=== PATIENT | female | born 1945 | race Caucasian/White ===

== ENCOUNTER 2023-09-09 19:18 | Emergency (ER) | payer OTHER ==
--- OUTSIDE RECORDS SUMMARY | 2023-09-09 19:25 | XMS REPORT | Continuity of Care Document ---
:1945 Author Organization [facility] t Address [address] [place] [address] [address] [place] [address] Care Team Providers Name Role Phone Gerardo Martinez MD Primary Care Physician Doctor Unassigned, [place] Attending Clinician Unavailable Floresita AMAYA, Alycia Attending Clinician Samson Cleveland MD Attending Clinician Peg Ervin Attending Clinician Unavailable Provider, Unknown Attending Clinician Unavailable Gerardo Martinez MD Attending Clinician Yan_W Attending Clinician Unavailable GERARDO MARTINEZ Attending Clinician Unavailable Leah Salcedo RN Attending Clinician Unavailable ZURDO HERNANDEZ Attending Clinician Unavailable Deborah Cleveland DO Attending Clinician Kailey Albert MD Attending Clinician Zurdo Hernandez MD Attending Clinician Lab, Ang - Db Attending Clinician Unavailable VIKY URIARTE Attending Clinician Unavailable Therapy, Adc Covid Infusion Attending Clinician Unavailable Viky Uriarte MD Attending Clinician Garrett Carr MD Attending Clinician Madhuri Billingsley Attending Clinician MADHURI BERGERON Attending Clinician Unavailable CHERYL RIVAS Attending Clinician Unavailable Erica_YUSUF Attending Clinician Unavailable MD CHERYL RIVAS Attending Clinician Unavailable Valrei_A_AH Attending Clinician Unavailable ISI POPE Attending Clinician Unavailable SAMSON [place] Admitting Clinician Unavailable Hamzah Admitting Clinician Unavailable KAILEY ALBERT Admitting Clinician Unavailable Kailey Albert MD Admitting Clinician Erica_YUSUF Admitting Clinician Unavailable CHERYL RIVAS Admitting Clinician Unavailable MD CHERYL RIVAS Admitting Clinician Unavailable Valeri_A_AH Admitting Clinician Unavailable Payers Payer Name Policy Type Policy Number Effective Date Expiration Date S raghavendra [employer] [place] [id number] 2021 PLUS CLASSIC/VALUE 00:00:00 [place] [place] - [id number] 2021 [place] 00:00:00 (MEDICARE REPLACEMENT/ADVANT AGE - HMO) Problems Condition Condition Condition Status Onset Resolution Last Treating Co mments Source Name Details Category Date Date Treatment Clinician Date Coronary Coronary Disease Active Metho di artery artery 6-13 st disease disease 00:00: Hospita 00 l Atrial Atrial Disease Active Methodi fibrillati fibrillati 9-12 st on with on with 00:00: Hospita rapid rapid 00 l ventricula ventricula r response r response Coronary Coronary Disease Active Unive rs artery artery 3-17 ity of disease disease 00:00: [place] involving involving 00 Medi [place] coronary coronary artery of artery of [place] heart with heart with unstable unstable angina angina pectoris pectoris NSTEMI NSTEMI Disease Active Univers (non-ST (non-ST 3-17 ity of elevated elevated 00:00: [place] myocardial myocardial 00 Me dical infarction infarction Br anch ) ) Morbid Morbid Disease Active Univers obesity obesity 3-17 ity of 00:00: [place] 00 Medical Branch Coronary Coronary Disease Active Unive rs artery artery 3-17 ity of disease disease 00:00: [place] involving involving 00 Medi [place] coronary coronary artery of artery of [place] heart with heart with unstable unstable angina angina pectoris pectoris Other Other Disease Active Univers hyperlipid hyperlipid 3-17 it y of emia emia 00:00: [place] 00 Medical Branch Achilles Achilles Disease Active Metho di tendinosis tendinosis 2-25 st of left of left 00:00: Hospita lower lower 00 l extremity extremity CAD CAD Disease Active Overview: Method i (coronary (coronary 7 Formattin s t artery artery 00:00: g of this Hospita disease) disease) 00 note l might be different from the original. Dr. Canas Hypothyroi Hypothyroi Problem Active V illage dism dism 4-13 Family 00:00: Practic 00 e Hyperchole Hyperchole Problem Active V illage sterolemia sterolemia 4-13 Fa sondra 00:00: Practic 00 e Essential Essential Problem Active Felix zahra hypertensi Hypertensi 4-13 Fa sondra on on 00:00: Practic 00 e Gastroesop Gastroesop Problem Active V illage hageal hageal 4-13 Family reflux Reflux 00:00: Practic disease Disease 00 e Irritable Irritable Problem Active Felix zahra bowel Bowel 4-13 Family syndrome Syndrome 00:00: Practi c 00 e Achilles Achilles Disease Active Overview: Me thodi tendinitis tendinitis 12-[address] of right of right 00:00: g of this Hos jermaine lower lower 00 note l extremity extremity might be different from the original. 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 Added automatic ally from request for surgery [id number] Postcalcan Postcalcan Disease Active Overview : Methodi eal eal 12-[address] bursitis bursitis 00:00: g of this Hos jermaine of right of right 00 note l foot foot might be different from the original. Added automatic ally from request for surgery [id number] Acquired Acquired Disease Active Overview: Me thodi hypothyroi hypothyroi 3-[address] dism dism 00:00: g of this Hospita 00 note l might be different from the original. Patient notes that since increase in dose, she has noted new hair growth and improveme nt in bowel habits, as well as more energyLas t Assessmen t & Plan: Formattin g of this note might be different from the original. Continue current doseReche ck in 2 months Irritable Irritable Disease Active Overview: Methodi bowel bowel 02-[address] syndrome syndrome 00:00: g of this Hos jermaine with with 00 note l diarrhea diarrhea might be different from the original. Gastroent erology presumes this diagnosis ; patient up to date on colon cancer screening with hemeoccul t and GI doesn't think that colonosco py would offer any therapeut ic benefit.P atconcepcion has given up most of her simple carbohydr ates and tried antispasm odic. Does not feel these efforts were helpful.L ast Assessmen t & Plan: Formattin g of this note might be different from the original. Advised to update gastroent erology on treatment failure. Consider hyoscyami ne (Anaspaz) , Viberzi, Lotronex. Would appreciat e GI input on next steps. Liver mass Liver mass Disease Active 2017-11 Overview : Methodi 0-[address] 00:00: g of this Hospita 00 note l might be different from the original. Stable per CT 8 Diverticul Diverticul Disease Active 2017-11 Overview : Methodi osis osis 0-[address] 00:00: g of this Hospita 00 note l might be different from the original. Seen on CT abd/pelvi s 09/03Pati ent is pending Renal cyst Renal cyst Disease Active 2017-11 Overview : Methodi 0-[address] 00:00: g of this Hospita 00 note l might be different from the original. Not previousl y seen and not well visualize d on CT.Last Assessmen t & Plan: Formattin g of this note might be different from the original. Order ultrasoun d Other Other Disease Active 2017-11 Overview: Method i hyperlipid hyperlipid Formattin st emia emia 00:00: g of this Hospita 00 note l might be different from the original. On statin The 10-year ASCVD risk score (Chester DC Jr., et al., 2013) is: 54.1% Values used to calculate the score: Age: 74 years Sex: Female Is Non-Hispa brice : No Diabetic: Yes Tobacco smoker: No Systolic Blood Pressure: 160 mmHg Is BP treated: Yes HDL Cholester ol: 42 mg/dL Total Cholester ol: 145 mg/dLNo myalgia Dizziness Dizziness Disease Active 2017-11 Overview: Methodi 0-[address] 00:00: g of this Hospita 00 note l might be different from the original. Can feel when she lies down, and when she stands up.Has fallen into the craft a few times. --------- --------- --------- --------- --------- --------- ---Contin ues to have dizziness Dr. Canas (cardiolo gy) thinks it's inner ear; states allergies haven't been very controlle d. Grief Grief Disease Active 2016-11 Overview: Method i 0-[address] 00:00: g of this Hospita 00 note l might be different from the original. Patient started lexapro last visit; feels like it's helping and that it has stablized her mood well. --------- --------- --------- --------- ----She has since stopped lexapro. Has positive depressio n screen last visit, that was not addressed due to acute pain.Darcie ent states that if she didn't have the pain, she'd feel fine. But with the pain, she is feeling a little depressed . Last Assessmen t & Plan: Formattin g of this note might be different from the original. NO medicatio ns at this time; further evaluatio n for the pain. Kidney Kidney Disease Active 2016-11 Overview: Method i stones stones 0-[address] 00:00: g of this Hospita 00 note l might be different from the original. Patient is having left abdominal pain that gets pretty sharp at times. Notices mostly later in the evening when she is winding down. No vomiting. Every now and then feels nauseated . Patient has some alternati on between constipat ion and diarrhea. In the past 2 weeks has also noted severe heart burn on protonix. Last colonosco py was and they removed 7 polyps.La Assessmen t & Plan: Formattin g of this note might be different from the original. Encourage d hydration ER visit if pain becomes severeTam sulosin discussed ; patient defers. Allergic Allergic Disease Active Overview: Me thodi rhinitis rhinitis 5-[address] 00:00: g of this Hospita 00 note l might be different from the original. Patient states that she is having a lot of trouble with her allergies . She is taking claratinS he is not taking a nasal spray.Carrie javier is having eye drainage and soreness in the skin over the sinusesLa st Assessmen t & Plan: Formattin g of this note might be different from the original. I will send fluticaso ne to try. Morbid Morbid Disease Active Overview: [facility] H[facility] 00 note l might be different from the original. Breakfast : cup of decaf coffee, creamer (2 tsp) and splenda; sometimes toast--no t very oftenLunc h: leftovers from the night before--s ometimes a sandwich (typicall y smaller than dinner).D inner: ground turkey (tacos, patties with gravy, pizza, chili)/ch icken/fis h/shrimp; green beans/bro ccoli/bru ssel sprouts/c abbage/sp inach, does a lot of rice (no potatoes due to diet)Weak ness is fresh bread--ca n eat a lot.Very seldomly eats desserts- -likes to bake but doesn't really eat themBever ages: pepsi or rc for meals (1 can per meal at most); doesn't really do juice or sweet tea, and doesn't really drink water. No formal exercise at this time.---- --------- --------- --------- --------- --------- --------- --------- --------- --------- -----\\Did very well on victoza; however, is unable to afford.Jamey brand's a1c had been 5.6 and is now 6.5--has never been before. Discussed that she is not eating meals--so me days only has a boost.Las t Assessmen t & Plan: Formattin g of this note might be different from the original. Detailed diet and exercise history performed .Discusse d overall expectati ons as far as weight loss.Disc ussed what "success" in weight loss means and how much of a differenc e in overall health that 5-10% of body weight lost can make.Bogdan ferris discussio n of the weight loss medicatio ns, and their mechanism s of action. Individua l recommend ations made.Will try to get trulicity for her insulin resistanc e. Phentermi ne and belviq contraind icated due to her history. Could try contrave. Discussed that patient needs to cut out sodas and sugar sweetened beverages .Discusse d that tracking is extremely important . Type 2 Type 2 Disease Active Overview: Method i diabetes diabetes 4-[address] mellitus mellitus 00:00: g of this Hos jermaine without without 00 note l complicati complicati might be on, on, different without without from the long-term long-term original. current current Using use of use of victozaFi insulin insulin rst few days she was nauseated , but after that she's been doing well.Has cut out bread completel yHas cut down on soft drinks to every other day. --------- --------- --------- --------- --------- --------- --------- --Patient is no longer able to continue this medicatio n due to economics Was doing extremely well on this medicatio n-------- --------- --------- --------- --------- --------- --------- --------- 11/01/19a 1c 6.5 X 2 so discussed this makes her diabetic. Will begin to screen. No current medicatio ns------- --------- --------- --------- --------- --------- --------- --------- --------- 0Patient is doing well on current medicatio nsLast Assessmen t & Plan: Formattin g of this note might be different from the original. Diabetes mellitus: Hypoglyce ajit: noneAdher ing to meds: diet controlle dEye exam:disc ussed needing to scheduleN europathy : Nephropat hy: Statin:at rovastati nACEI/ARB :benazepr ilPneumon ia vaccine:F gerald vaccine: vaccinate d today Chest pain Chest pain Disease Active Overview : Methodi 1-[address] 00:00: g of this Hospita 00 note l might be different from the original. Patient had ECHO showing lesion on her valve, but Dr. Canas says this is okayDid not want to do another stress test--say s it's unnecessa ry. Essential Essential Disease Active Overview: Methodi hypertensi hypertensi 2- Formattin st on on 00:00: g of this Hospita 00 note l might be different from the original. Blood pressure has been running slightly higher at home, but not as high as today. It's been in the 140/80s at home. Previousl y had bad cough with lisinopri lPrevious ly was on losartan- -tolerate d fine. --------- --------- --------- --------- --------- --------- -------Jamey sunday is taking amlodipin e, hctz and metoprolo l for blood pressure. Have been running 150s-160s . When we increased to 10mg, the blood pressure did not change.-- --------- --------- --------- --------- --------- --------1 01/02/19Be en running 123-134/6 5-79 at homeNo chest pain, shortness of breath, headache, blurry vision, or weakness. --------- --------- --------- --------- --------- --------- --------- ---[id number] 58/50-79P atient is taking metoprolo l, hctz and amlodipin e-------- --------- --------- --------- --------- --------- --------- --------- ---2019Patie nt took at home today and it was 120s-130s /60-70s; with outliers in the 140sNo chest pain, shortness of breath, blurry vision, or weakness. Patient has headaches regularly Last Assessmen t & Plan: Marcus calvin of this note might be different from the original. Continue current medicatio nsFollow up in 6 months Difficulty Difficulty Disease Active U nivers walking walking 7-24 ity of 00:00: [place] 00 Medical Branch S/P TKR S/P TKR Disease Active Univers (total (total 7-24 ity of knee knee 00:00: [place] replacemen replacemen 00 Me dical t) using t) using Branch cement, cement, left left Abdominal Abdominal Disease Active Uni vers pain, pain, 6-10 it[place] of generalize generalize [place] Nausea & Nausea & Disease Active Unive rs vomiting vomiting 6-10 ity of 00:00: [place] 00 Medical Branch Hypertensi Hypertensi Disease Active U nivers on on 04-22 ity of 00:00: [place] 00 Medical Branch GERD GERD Disease Active Univers (gastroeso (gastroeso 04-22 it y of phageal phageal 00:00: [place] reflux reflux 00 Medical disease) disease) Branch Allergies, Adverse Reactions, Alerts Allergy Allergy Status Severity Reaction(s) Onset Inactive Treating Comm ents Source Name Type Date Date Clinician Codeine Propensi Active Rash Methodi ty to 01-09 st adverse 00:00: Hospita reaction 00 l s to drug Sulfa Propensi Active Rash Methodi (Sulfona ty to 01-09 mide adverse 00:00: Hospita Antibiot reaction 00 l ics) s to drug Sulfa Propensi Active Rash Univers (Sulfona ty to 04-21 ity of mide adverse 00:00: [place] Antibiot reaction 00 Medica l ics) s Branch Codeine Propensi Active Rash Univers ty to 04-21 ity of adverse 00:00: [place] reaction 00 Medical s Branch CODEINE DRUG Active Rash Univers INGREDI 04-21 ity of 00:00: [place] 00 Medical Branch SULFA Drug Active Rash Univers (SULFONA Class 04-21 ity of MIDE 00:00: [place] ANTIBIOT 00 Medical ICS) Branch Codeine Allergy Active Moderate Rash [place] to Family substanc Practic e e SULFA Allergy Active Mild to Rash [place] (SULFONA to moderate Family MIDE substanc Practic ANTIBIOT e e ICS) Family History Family Member Diagnosis Comments Start Date Stop Date Source Natural father Heart attack [facility] [place] [place] Natural father Hypertension [facility] [place] [place] Natural father Stroke [facility] Natural brother Heart attack [facility] Natural mother No Known Problems Met [facility] Social History Social Habit Start Date Stop Date Quantity Comments Source Gender identity Universit y [facility] Sexual orientation Univer sity [facility] Alcohol intake 2023-04-26 2023-04-26 Lifetime Christianity 00:00:00 00:00:00 non-drinker Hospital (finding) History of Social 2023-04-26 2023-04-[address] function 00:00:00 00:00:00 Hospital Tobacco use and 2023-04-25 2023-04-25 Smokeless Christianity exposure 00:00:00 00:00:00 tobacco non-user Hospital Exposure to 2023-02-17 2023-02-27 Not sure [facility]-CoV-2 (event) 00:00:00 13:59:00 [facility] Sex Assigned [birth year] Universit y of 00:00:00 00:00:00 [place] [facility] Smoking Status Start Date Stop Date Source Never smoked tobacco Christianity H ospital Medications Ordered Filled Start Stop Current Ordering Indication Dosage Frequency Signature Comments Components Source Medication Medication Date Date Medication? Clinician (SIG) Name Name atorvastati Yes 80mg QD Take 1 Meth aliya n (LIPITOR) 6-14 tablet (80 st 80 MG 11:45: mg total) Hospita tablet 12 by mouth l nightly. levothyroxi 0 Yes 75ug QD Take 1 Meth aliya ne 6-14 tablet (75 st (SYNTHROID) 11:45: mcg total) Hospita 75 mcg 12 by mouth l tablet nightly. pantoprazol 0 Yes 40mg QD Take 1 Meth aliya e 6-14 tablet (40 st (PROTONIX) 11:45: mg total) Ho spita 40 MG EC 12 by mouth l tablet nightly. hydroCHLORO 2022-0 Yes 25mg QD Take 1 Meth aliya thiazide 6-14 tablet (25 st (HYDRODIURI 11:45: mg total) H ospita L) 25 MG 12 by mouth l tablet nightly. benazepriL 0 Yes 10mg QD Take 1 Metho di (LOTENSIN) 6-14 tablet (10 st 10 MG 11:45: mg total) Hospita tablet 12 by mouth l nightly. metoprolol 2022-0 Yes 50mg QD Take 1 Metho di tartrate 6-14 tablet (50 st (LOPRESSOR) 11:45: mg total) H ospita 50 mg 12 by mouth l tablet nightly. aspirin 2022-0 2022- No 81mg QD Take 1 Methodi (ECOTRIN) 13 -13 tablet (81 st 81 MG 11:28: 00:00 mg total) Hospit a enteric 56 :00 by mouth l coated nightly. tablet betamethaso 0 2022- No [id number] 6mg Univers ne acet,sod 4-17 -17 ity of phos 21:15: 20:35 [place] (CELESTONE 00 :00 Medical SOLUSPAN) 6 Branch mg/mL injection 6 mg triamcinolo 2022-0 2022- No [id number] 40mg Univers ne -17 -17 ity of acetonide 21:15: 20:34 [place] (KENALOG) 00 :00 Medical injection Branch 40 mg triamcinolo 0 2022- No [id number] 40mg 40 mg, Univers ne 4-17 04-17 Intramuscu ity of acetonide 21:15: 20:34 [place], [place]CE, [place] (KE[place] 00 :00 1 dose, On Medi cameron injection Mon Branch 40 mg 02/27/23 at 1615, Routine betamethaso 2022-2022- No [id number] 6mg 6 mg, Univers ne acet,sod 02-27-17 Intramuscu i ty of phos 21:15: 20:35 lar, ONCE, [place] (CELESTONE 00 :00 1 dose, On Med ical SOLUSPAN) 6 Mon Branch mg/mL 02/27/23 at injection 6 1615, mg Routine betamethaso 2022- No [id number] 6mg Univers ne acet,sod -27 02-17 ity of phos 21:15: 20:35 [place] (CELESTONE 00 :00 Medical SOLUSPAN) 6 Branch mg/mL injection 6 mg triamcinolo 2022- No [id number] 40mg Univers ne 4-17 -17 ity of acetonide 21:15: 20:34 [place] (KENALOG) 00 :00 Medical injection Branch 40 mg triamcinolo 2022-0 2022- No [id number] 40mg 40 mg, Univers ne 4-17 04-17 Intramuscu ity of acetonide 21:15: 20:34 [place]CE, [place] (KE[place]LOG[place] 00 :00 1 dose, On Medi cameron injection Mon Branch 40 mg 02/27/23 at 1615, Routine betamethaso 2022-0 2022- No [id number] 6mg 6 mg, Univers ne acet,sod 4-17 -17 Intramuscu i ty of phos 21:15: 20:35 lar, ONCE, [place] (CELESTONE 00 :00 1 dose, On Med ical SOLUSPAN) 6 Mon Branch mg/mL 02/27/23 at injection 6 1615, mg Routine diltiazem 2022-0 Yes [id number] 180mg Take 1 U nivers 180 mg 24 4-17 capsule by ity of hr capsule 00:00: mouth in [facility] as 00 the Medical morning. Branch montelukast 2022-0 Yes [id number] 10mg Take 1 Univers 10 mg 4-17 tablet by ity of tablet 00:00: mouth in [place] 00 the Medical morning. Branch azithromyci 2022-0 Yes [id number] 500mg Take 1 Univers n 500 mg 4-17 tablet by ity of tablet 00:00: mouth in [place] 00 the Medical morning. Branch diltiazem 2022-0 Yes [id number] 180mg Take 1 U nivers 180 mg 24 4-17 capsule by ity of hr capsule 00:00: mouth in [facility] as 00 the Medical morning. Branch montelukast 2022-0 Yes [id number] 10mg Take 1 Univers 10 mg 4-17 tablet by ity of tablet 00:00: mouth in [place] the Medical morning. Branch azithromyci 2022-0 Yes [id number] 500mg Take 1 Univers n 500 mg 4-17 tablet by ity of tablet 00:00: mouth in [place] the Medical morning. Branch diltiazem 2022-0 Yes [id number] 180mg Take 1 U nivers 180 mg 24 4-17 capsule by ity of hr capsule 00:00: mouth in [facility] as 00 the Medical morning. Branch montelukast 2022-0 Yes [id number] 10mg Take 1 Univers 10 mg 4-17 tablet by ity of tablet 00:00: mouth in [place] 00 the Medical morning. Branch azithromyci 2022-0 Yes [id number] 500mg Take 1 Univers n 500 mg 4-17 tablet by ity of tablet 00:00: mouth in [place] 00 the Medical morning. Branch diltiazem 2022-0 Yes [id number] 180mg Take 1 U nivers 180 mg 24 4-17 capsule by ity of hr capsule 00:00: mouth in [facility] as 00 the Medical morning. Branch montelukast 2022-0 Yes [id number] 10mg Take 1 Univers 10 mg 4-17 tablet by ity of tablet 00:00: mouth in [place] the Medical morning. Branch azithromyci 2022-0 Yes [id number] 500mg Take 1 Univers n 500 mg 4-17 tablet by ity of tablet 00:00: mouth in [place] 00 the Medical morning. Branch diltiazem 2022-0 Yes [id number] 180mg Take 1 U nivers 180 mg 24 4-17 capsule by ity of hr capsule 00:00: mouth in [facility] as 00 the Medical morning. Branch montelukast 2022-0 Yes [id number] 10mg Take 1 Univers 10 mg 4-17 tablet by ity of tablet 00:00: mouth in [place] 00 the Medical morning. Branch azithromyci 2022-0 Yes [id number] 500mg Take 1 Univers n 500 mg 4-17 tablet by ity of tablet 00:00: mouth in [place] the Medical morning. Branch diltiazem 2022-0 Yes [id number] 180mg Take 1 U nivers 180 mg 24 4-17 capsule by ity of hr capsule 00:00: mouth in [facility] 00 the Medical morning. Branch montelukast 2022-0 Yes [id number] 10mg Take 1 Univers 10 mg 4-17 tablet by ity of tablet 00:00: mouth in [place] the Medical morning. Branch azithromyci 2022-0 Yes [id number] 500mg Take 1 Univers n 500 mg 4-17 tablet by ity of tablet 00:00: mouth in [place] 00 the Medical morning. Branch atorvastati 3-0 2023- No 80mg Take 1 Uni vers n 80 mg 2-28 02-28 tablet by ity of tablet 08:01: 00:00 mouth at [place] 13 :00 bedtime. Medical Branch atorvastati 3-0 3- No 80mg Take 1 Uni vers n 80 mg 2-28 02-28 tablet by ity of tablet 08:01: 00:00 mouth at [place] 13 :00 bedtime. Medical Branch azithromyci 2022-0 Yes [id number] 500mg Take 1 Univers n 500 mg 2-28 tablet by ity of tablet 00:00: mouth in [place] 00 the Medical morning. Branch azithromyci 0 Yes [id number] 500mg Take 1 Univers n 500 mg 2-28 tablet by ity of tablet 00:00: mouth in [place] 00 the Medical morning. Branch azithromyci 0 3- No [id number] 500mg Take 1 Univers n 500 mg 2-28 04-17 tablet by ity o f tablet 00:00: 00:00 mouth in [place] 00 :00 the Medical morning. Branch azithromyci 0 2022- No [id number] 500mg Take 1 Univers n 500 mg 2-28 04-17 tablet by ity o f tablet 00:00: 00:00 mouth in [place] 00 :00 the Medical morning. Branch BENAZEPRIL 0 Yes TAKE 1 Unive rs 10 mg 1-04 TABLET ity of tablet 00:00: DAILY [facility] BENAZEPRIL 2022-0 Yes TAKE 1 Unive rs 10 mg 1-04 TABLET ity of tablet 00:00: DAILY [facility] BENAZEPRIL 2022-0 Yes TAKE 1 Unive rs 10 mg 1-04 TABLET ity of tablet 00:00: DAILY [facility] BENAZEPRIL 2022-0 Yes TAKE 1 Unive rs 10 mg 1-04 TABLET ity of tablet 00:00: DAILY [facility] BENAZEPRIL 2022-0 Yes TAKE 1 Unive rs 10 mg 1-04 TABLET ity of tablet 00:00: DAILY [facility] BENAZEPRIL 2022-0 Yes TAKE 1 Unive rs 10 mg 1-04 TABLET ity of tablet 00:00: DAILY [facility] BENAZEPRIL 2022-0 Yes TAKE 1 Unive rs 10 mg 1-04 TABLET ity of tablet 00:00: DAILY Medical Branch BENAZEPRIL 2022-0 Yes TAKE 1 Unive rs 10 mg 1-04 TABLET ity of tablet 00:00: DAILY [facility] BENAZEPRIL 2022-0 Yes TAKE 1 Unive rs 10 mg 1-04 TABLET ity of tablet 00:00: DAILY [place] [facility] BENAZEPRIL 2022-0 Yes TAKE 1 Unive rs 10 mg 1-04 TABLET ity of tablet 00:00: DAILY [place] [facility] amLODIPine 2021-1 2021- No 5mg Take 5 mg U nivers 5 mg tablet 11-15 by mouth ity of 09:43: 00:00 daily. [place] 23 :00 [facility] amLODIPine 2021-11- No 5mg Take 5 mg U nivers 5 mg tablet 11-15 by mouth ity of 09:43: 00:00 daily. [place] 23 :00 [facility] atorvastati 2021-0 Yes 80mg QD Take 1 Meth aliya n (LIPITOR) 9-15 tablet (80 st 80 MG 11:48: mg total) [facility] tablet 00 by mouth l nightly. levothyroxi 2021-0 Yes 75ug QD Take 1 Meth aliya ne 9-15 tablet (75 st (SYNTHROID) 11:48: mcg total) Hospita 75 mcg 00 by mouth l tablet nightly. pantoprazol 0 Yes 40mg QD Take 1 Meth aliya e 9-15 tablet (40 st (PROTONIX) 11:48: mg total) Ho [facility]ita 40 MG EC 00 by mouth l tablet nightly. aspirin 2021-0 Yes 81mg QD Take 1 [facility] (ECOTRIN) 9-15 tablet (81 st 81 MG 11:48: mg total) [facility]ospita enteric 00 by mouth l coated nightly. tablet hydroCHLORO 2021-0 Yes 25mg QD Take 1 [facility] aliya thiazide 9-15 tablet (25 st (HYDRODIURI 11:48: mg total) H ospita L) 25 MG 00 by mouth l tablet nightly. benazepriL 2021-0 Yes 10mg QD Take 1 [facility] di (LOTENSIN) 9-15 tablet (10 st 10 MG 11:48: mg total) Hospita tablet 00 by mouth l nightly. metoprolol 2021-0 Yes 50mg QD Take 1 [facility] di tartrate 9-15 tablet (50 st (LOPRESSOR) 11:48: mg total) [facility] 50 mg 00 by mouth l tablet nightly. atorvastati 2021-0 Yes 80mg QD Take 1 Meth aliya n (LIPITOR) 9-15 tablet (80 st 80 MG 11:48: mg total) [facility]ospita tablet 00 by mouth l nightly. levothyroxi 2021-0 Yes 75ug QD Take 1 Meth aliya ne 9-15 tablet (75 st (SYNTHROID) 11:48: mcg total) [facility]ospita 75 mcg 00 by mouth l tablet nightly. pantoprazol 2022-0 Yes 40mg QD Take 1 Meth aliya e 9-15 tablet (40 st (PROTONIX) 11:48: mg total) [facility]ita 40 MG EC 00 by mouth l tablet nightly. aspirin 2022-0 Yes 81mg QD Take 1 [facility] (ECOTRIN) 9-15 tablet (81 st 81 MG 11:48: mg total) [facility]ospita enteric 00 by mouth l coated nightly. tablet hydroCHLORO 2022-0 Yes 25mg QD Take 1 Meth aliya thiazide 9-15 tablet (25 st (HYDRODIURI 11:48: mg total) H [facility]spita L) 25 MG 00 by mouth l tablet nightly. benazepriL 2-0 Yes 10mg QD Take 1 [facility] di (LOTENSIN) 9-15 tablet (10 st 10 MG 11:48: mg total) Hospita tablet 00 by mouth l nightly. metoprolol 2-0 Yes 50mg QD Take 1 [facility] di tartrate 9-15 tablet (50 st (LOPRESSOR) 11:48: mg total) [facility]sp[facility] 50 mg 00 by mouth l tablet nightly. amLODIPine 2022-0 2022- No 5mg QD Take 1 Meth aliya (NORVASC) 5 07-28-14 tablet (5 st mg tablet 11:48: 00:00 mg total) [facility]ita 00 :00 by mouth l nightly. amLODIPine 2022-0 2022- No 5mg QD Take 1 [facility] aliya (NORVASC) 5 -28 07-14 tablet (5 st mg tablet 11:48: 00:00 mg total) [facility]ita 00 :00 by mouth l nightly. apixaban 2022-0 Yes 5mg Q.5D Take 1 [facility] (ELIQUIS) 5 9-14 tablet (5 st mg tablet 00:00: mg total) [facility] 00 by mouth 2 l (two) times a day. apixaban 2022-0 Yes 5mg Q.5D Take 1 [facility] (ELIQUIS) 5 9-14 tablet (5 st mg tablet 00:00: mg total) [facility] [place] 00 by mouth 2 l (two) times a day. apixaban 2022-0 Yes 5mg Q.5D Take 1 [facility] (ELIQUIS) 5 9-14 tablet (5 st mg tablet 00:00: mg total) [facility] [place] 00 by mouth 2 l (two) times a day. apixaban 5 2022-0 Yes 5mg Take 5 mg Un adam mg tablet 9-14 by mouth ity of 00:00: in the [place] morning Medical and 5 mg Branch in the evening. apixaban 5 2022-0 Yes 5mg Take 5 mg Un adam mg tablet 9-14 by mouth ity of 00:00: in the [place] morning Medical and 5 mg Branch in the evening. apixaban 5 2022-0 Yes 5mg Take 5 mg Un adam mg tablet 9-14 by mouth ity of 00:00: in the [place] morning Medical and 5 mg Branch in the evening. apixaban 5 2022-0 Yes 5mg Take 5 mg Un adam mg tablet 9-14 by mouth ity of 00:00: in the [place] morning Medical and 5 mg Branch in the evening. apixaban 5 2-0 Yes 5mg Take 5 mg Un adam mg tablet 9-14 by mouth ity of 00:00: in the [place] morning Medical and 5 mg Branch in the evening. apixaban 5 2-0 Yes 5mg Take 5 mg Un adam mg tablet 9-14 by mouth ity of 00:00: in the [place] morning Medical and 5 mg Branch in the evening. diltiazem 2022-0 Yes 180mg Take 180 Uni vers 180 mg 24 9-14 mg in the ity o f hr capsule 00:00: morning. [place] 00 Medical Branch apixaban 5 2022-0 Yes 5mg Take 5 mg Un adam mg tablet 9-14 by mouth ity of 00:00: in the [place] morning Medical and 5 mg Branch in the evening. diltiazem 2022-0 Yes 180mg Take 180 Uni vers 180 mg 24 9-14 mg in the ity o f hr capsule 00:00: morning. [place] 00 Medical Branch apixaban 5 2022-0 Yes 5mg Take 5 mg Un adam mg tablet 9-14 by mouth ity of 00:00: in the [place] morning Medical and 5 mg Branch in the evening. diltiazem 2022-0 Yes 180mg Take 180 Uni vers 180 mg 24 9-14 mg in the ity o f hr capsule 00:00: morning. [place] 00 Medical Branch apixaban 5 2021-0 Yes 5mg Take 5 mg Un adam mg tablet 9-14 by mouth ity of 00:00: in the [place] morning Medical and 5 mg Branch in the evening. diltiazem 2022-0 Yes 180mg Take 180 Uni vers 180 mg 24 9-14 mg in the ity o f hr capsule 00:00: morning. [place] 00 Medical Branch apixaban 5 2021-0 Yes 5mg Take 5 mg Un adam mg tablet 9-14 by mouth ity of 00:00: in the [place] morning Medical and 5 mg Branch in the evening. diltiazem 2022-0 Yes 180mg Take 180 Uni vers 180 mg 24 9-14 mg in the ity o f hr capsule 00:00: morning. [place] 00 Medical Branch apixaban 5 2021-0 Yes 5mg Take 5 mg Un adam mg tablet 9-14 by mouth ity of 00:00: in the [place] morning Medical and 5 mg Branch in the evening. diltiazem 2-0 Yes 180mg Take 180 Uni vers 180 mg 24 9-14 mg in the ity o f hr capsule 00:00: morning. [place] 00 Medical Branch apixaban 5 2021-0 Yes 5mg Take 5 mg Un adam mg tablet 9-14 by mouth ity of 00:00: in the [place] morning Medical and 5 mg Branch in the evening. diltiazem 2022-0 2023- No 180mg Take 180 Un adam 180 mg 24 9-14 04-17 mg in the ity of hr capsule 00:00: 00:00 morning. [place] 00 :00 Medical Branch diltiazem 2022-0 2023- No 180mg Take 180 Un adam 180 mg 24 9-14 04-17 mg in the ity of hr capsule 00:00: 00:00 morning. [place] 00 :00 Medical Branch diltiazem 2022-0 2022- No 180mg QD Take 1 Meth aliya CD 9-14 10-[address] (CardIZEM 00:00: 04:59 (180 mg [facility] CD) 180 MG 00 :00 total) by l 24 hr mouth capsule daily for 30 days. diltiazem 2022-0 2022- No 180mg QD Take 1 Meth aliya CD 9-14 10-[address] (CardIZEM 00:00: 04:59 (180 mg [facility] CD) 180 MG 00 :00 total) by l 24 hr mouth capsule daily for 30 days. BENAZEPRIL Yes TAKE 1 Unive rs 10 mg 7-25 TABLET ity of tablet 00:00: DAILY [place] [address] Medical Branch BENAZEPRIL Yes TAKE 1 Unive rs 10 mg 7-25 TABLET ity of tablet 00:00: DAILY [place] [facility] BENAZEPRIL Yes TAKE 1 Unive rs 10 mg 7-25 TABLET ity of tablet 00:00: DAILY [place] [address] Medical Branch BENAZEPRIL Yes TAKE 1 Unive rs 10 mg 7-25 TABLET ity of tablet 00:00: DAILY [address] BENAZEPRIL Yes TAKE 1 Unive rs 10 mg 7-25 TABLET ity of tablet 00:00: DAILY [address] BENAZEPRIL Yes TAKE 1 Unive rs 10 mg 7-25 TABLET ity of tablet 00:00: DAILY [address] BENAZEPRIL Yes TAKE 1 Unive rs 10 mg 7-25 TABLET ity of tablet 00:00: DAILY [address] BENAZEPRIL 2022- No TAKE 1 Univ ers 10 mg 7-25 01-04 TABLET ity of tablet 00:00: 00:00 DAILY [place] 00 :00 [facility] hydrochloro 0 Yes 25mg Take 25 mg Univers thiazide 5-09 by mouth ity of (ESIDRIX) 13:37: daily. [place] [address] Branch pantoprazol Yes 40mg Take 40 mg Univers e 40 mg EC 5-09 by mouth ity o f tablet 13:37: daily. [address] metoprolol 0 Yes 50mg Take 50 mg U nivers tartrate 50 5-09 by mouth ity of mg tablet 13:37: daily. [address] dicyclomine Yes 20mg Take 20 mg Univers 20 mg 5-09 by mouth 2 ity of tablet 13:37: (two) [place] [address] times Medical daily. Branch hydrochloro 2022-0 Yes 25mg Take 25 mg Univers thiazide 5-09 by mouth ity of (ESIDRIX) 13:37: daily. [place] 25 mg 34 Medical tablet Branch pantoprazol 2-0 Yes 40mg Take 40 mg Univers e 40 mg EC 5-09 by mouth ity o f tablet 13:37: daily. [address] Branch metoprolol 2-0 Yes 50mg Take 50 mg U nivers tartrate 50 5-09 by mouth ity of mg tablet 13:37: daily. [address] Branch dicyclomine 2-0 Yes 20mg Take 20 mg Univers 20 mg 5-09 by mouth 2 ity of tablet 13:37: (two) [place] [address] times Medical daily. Branch hydrochloro 2-0 Yes 25mg Take 25 mg Univers thiazide 5-09 by mouth ity of (ESIDRIX) 13:37: daily. [place] 25 mg Medical tablet Branch pantoprazol 2021-0 Yes 40mg Take 40 mg Univers e 40 mg EC 5-09 by mouth ity o f tablet 13:37: daily. [address] metoprolol 2021-0 Yes 50mg Take 50 mg U nivers tartrate 50 5-09 by mouth ity of mg tablet 13:37: daily. [address] dicyclomine 2021-0 Yes 20mg Take 20 mg Univers 20 mg 5-09 by mouth 2 ity of tablet 13:37: (two) [place] [address] times Medical daily. Branch hydrochloro 2-0 Yes 25mg Take 25 mg Univers thiazide 5-09 by mouth ity of (ESIDRIX) 13:37: daily. [place] 25 mg Medical tablet Branch pantoprazol 2-0 Yes 40mg Take 40 mg Univers e 40 mg EC 5-09 by mouth ity o f tablet 13:37: daily. [address] Branch metoprolol 2-0 Yes 50mg Take 50 mg U nivers tartrate 50 5-09 by mouth ity of mg tablet 13:37: daily. [address] Branch dicyclomine 2-0 Yes 20mg Take 20 mg Univers 20 mg 5-09 by mouth 2 ity of tablet 13:37: (two) [place] [address] times Medical daily. Branch hydrochloro 2-0 Yes 25mg Take 25 mg Univers thiazide 5-09 by mouth ity of (ESIDRIX) 13:37: daily. [place] 25 mg Medical tablet Branch pantoprazol 2021-0 Yes 40mg Take 40 mg Univers e 40 mg EC 5-09 by mouth ity o f tablet 13:37: daily. [address] Branch metoprolol 2021-0 Yes 50mg Take 50 mg U nivers tartrate 50 5-09 by mouth ity of mg tablet 13:37: daily. [address] dicyclomine 2021-0 Yes 20mg Take 20 mg Univers 20 mg 5-09 by mouth 2 ity of tablet 13:37: (two) [place] [address] times Medical daily. Branch hydrochloro 2021-0 Yes 25mg Take 25 mg Univers thiazide 5-09 by mouth ity of (ESIDRIX) 13:37: daily. [place] 25 mg Medical tablet Branch pantoprazol 2021-0 Yes 40mg Take 40 mg Univers e 40 mg EC 5-09 by mouth ity o f tablet 13:37: daily. [address] metoprolol 2021-0 Yes 50mg Take 50 mg U nivers tartrate 50 5-09 by mouth ity of mg tablet 13:37: daily. [address] dicyclomine 2021-0 Yes 20mg Take 20 mg Univers 20 mg 5-09 by mouth 2 ity of tablet 13:37: (two) [place] [address] times Medical daily. Branch hydrochloro 2021-0 Yes 25mg Take 25 mg Univers thiazide 5-09 by mouth ity of (ESIDRIX) 13:37: daily. [place] 25 mg Medical tablet Branch pantoprazol 2021-0 Yes 40mg Take 40 mg Univers e 40 mg EC 5-09 by mouth ity o f tablet 13:37: daily. [address] metoprolol 2021-0 Yes 50mg Take 50 mg U nivers tartrate 50 5-09 by mouth ity of mg tablet 13:37: daily. [address] dicyclomine 2021-0 Yes 20mg Take 20 mg Univers 20 mg 5-09 by mouth 2 ity of tablet 13:37: (two) [place] [address] times Medical daily. Branch hydrochloro 2-0 Yes 25mg Take 25 mg Univers thiazide 5-09 by mouth ity of (ESIDRIX) 13:37: daily. [place] 25 mg Medical tablet Branch atorvastati 2022-0 Yes 80mg Take 80 mg Univers n 80 mg 5-09 by mouth ity of tablet 13:37: at [place] [address] bedtime. Medical Branch amLODIPine 2021-0 Yes 5mg Take 5 mg Un adam 5 mg tablet 5-09 by mouth ity of 13:37: daily. [place] [address] Medical Branch pantoprazol 2021-0 Yes 40mg Take 40 mg Univers e 40 mg EC 5-09 by mouth ity o f tablet 13:37: daily. [place] [address] Medical Branch metoprolol 2021-0 Yes 50mg Take 50 mg U nivers tartrate 50 5-09 by mouth ity of mg tablet 13:37: daily. [place] [address] Medical Branch dicyclomine 0 Yes 20mg Take 20 mg Univers 20 mg 5-09 by mouth 2 ity of tablet 13:37: (two) [place] [address] times Medical daily. Branch hydrochloro 2021-0 Yes 25mg Take 25 mg Univers thiazide 5-09 by mouth ity of (ESIDRIX) 13:37: daily. [place] [address] mg Medical tablet Branch atorvastati 0 Yes 80mg Take 80 mg Univers n 80 mg 5-09 by mouth ity of tablet 13:37: at [place] [address] bedtime. Medical Branch amLODIPine 2021-0 Yes 5mg Take 5 mg Un adam 5 mg tablet 5-09 by mouth ity of 13:37: daily. [place] [address] Medical Branch pantoprazol 2021-0 Yes 40mg Take 40 mg Univers e 40 mg EC 5-09 by mouth ity o f tablet 13:37: daily. [place] [address] Medical Branch metoprolol 2021-0 Yes 50mg Take 50 mg U nivers tartrate 50 5-09 by mouth ity of mg tablet 13:37: daily. [place] [address] Medical Branch dicyclomine 2021-0 Yes 20mg Take 20 mg Univers 20 mg 5-09 by mouth 2 ity of tablet 13:37: (two) [place] [address] times Medical daily. Branch hydrochloro 2021-0 Yes 25mg Take 25 mg Univers thiazide 5-09 by mouth ity of (ESIDRIX) 13:37: daily. [place] [address] mg Medical tablet Branch atorvastati 2021-0 Yes 80mg Take 80 mg Univers n 80 mg 5-09 by mouth ity of tablet 13:37: at [place] [address] bedtime. Medical Branch amLODIPine 2022-0 Yes 5mg Take 5 mg Un adam 5 mg tablet 5-09 by mouth ity of 13:37: daily. [place] [address] Medical Branch pantoprazol 0 Yes 40mg Take 40 mg Univers e 40 mg EC 5-09 by mouth ity o f tablet 13:37: daily. [place] [address] Medical Branch metoprolol 0 Yes 50mg Take 50 mg U nivers tartrate 50 5-09 by mouth ity of mg tablet 13:37: daily. [place] [address] Medical Branch dicyclomine 0 Yes 20mg Take 20 mg Univers 20 mg 5-09 by mouth 2 ity of tablet 13:37: (two) [place] [address] times Medical daily. Branch hydrochloro 2021-0 Yes 25mg Take 25 mg Univers thiazide 5-09 by mouth ity of (ESIDRIX) 13:37: daily. [place] [address] Medical tablet Branch atorvastati 0 Yes 80mg Take 80 mg Univers n 80 mg 5-09 by mouth ity of tablet 13:37: at [place] [address] bedtime. Medical Branch amLODIPine 2021-0 Yes 5mg Take 5 mg Un adam 5 mg tablet 5-09 by mouth ity of 13:37: daily. [place] [address] Medical Branch pantoprazol 0 Yes 40mg Take 40 mg Univers e 40 mg EC 5-09 by mouth ity o f tablet 13:37: daily. [place] [address] Medical Branch metoprolol 0 Yes 50mg Take 50 mg U nivers tartrate 50 5-09 by mouth ity of mg tablet 13:37: daily. [place] [address] Medical Branch dicyclomine 0 Yes 20mg Take 20 mg Univers 20 mg 5-09 by mouth 2 ity of tablet 13:37: (two) [place] [address] times Medical daily. Branch hydrochloro 2021-0 Yes 25mg Take 25 mg Univers thiazide 5-09 by mouth ity of (ESIDRIX) 13:37: daily. [place] 25 mg Medical tablet Branch atorvastati 2021-0 Yes 80mg Take 80 mg Univers n 80 mg 5-09 by mouth ity of tablet 13:37: at [place] [address] bedtime. Medical Branch amLODIPine 2021-0 Yes 5mg Take 5 mg Un adam 5 mg tablet 5-09 by mouth ity of 13:37: daily. [place] [address] Medical Branch pantoprazol 2021-0 Yes 40mg Take 40 mg Univers e 40 mg EC 5-09 by mouth ity o f tablet 13:37: daily. [place] [address] Medical Branch metoprolol 2021-0 Yes 50mg Take 50 mg U nivers tartrate 50 5-09 by mouth ity of mg tablet 13:37: daily. [place] [address] Medical Branch dicyclomine 2021-0 Yes 20mg Take 20 mg Univers 20 mg 5-09 by mouth 2 ity of tablet 13:37: (two) [place] [address] times Medical daily. Branch hydrochloro 2-0 Yes 25mg Take 25 mg Univers thiazide 5-09 by mouth ity of (ESIDRIX) 13:37: daily. [place] 25 mg Medical tablet Branch atorvastati 2021-0 Yes 80mg Take 80 mg Univers n 80 mg 5-09 by mouth ity of tablet 13:37: at [place] [address] bedtime. Medical Branch pantoprazol 2021-0 Yes 40mg Take 40 mg Univers e 40 mg EC 5-09 by mouth ity o f tablet 13:37: daily. [place] [address] Medical Branch metoprolol 2021-0 Yes 50mg Take 50 mg U nivers tartrate 50 5-09 by mouth ity of mg tablet 13:37: daily. [place] [address] Medical Branch dicyclomine 2021-0 Yes 20mg Take 20 mg Univers 20 mg 5-09 by mouth 2 ity of tablet 13:37: (two) [place] [address] times Medical daily. Branch hydrochloro 2-0 Yes 25mg Take 25 mg Univers thiazide 5-09 by mouth ity of (ESIDRIX) 13:37: daily. [place] 25 mg Medical tablet Branch atorvastati 2021-0 Yes 80mg Take 80 mg Univers n 80 mg 5-09 by mouth ity of tablet 13:37: at [place] [address] bedtime. Medical Branch pantoprazol 2-0 Yes 40mg Take 40 mg Univers e 40 mg EC 5-09 by mouth ity o f tablet 13:37: daily. [place] [address] Medical Branch metoprolol 2-0 Yes 50mg Take 50 mg U nivers tartrate 50 5-09 by mouth ity of mg tablet 13:37: daily. [place] [address] Medical Branch dicyclomine 2-0 Yes 20mg Take 20 mg Univers 20 mg 5-09 by mouth 2 ity of tablet 13:37: (two) [place] [address] times Medical daily. Branch hydrochloro 2022-0 Yes 25mg Take 25 mg Univers thiazide 5-09 by mouth ity of (ESIDRIX) 13:37: daily. [place] 25 mg 34 Medical tablet Branch atorvastati 2-0 Yes 80mg Take 80 mg Univers n 80 mg 5-09 by mouth ity of tablet 13:37: at [place] [address] bedtime. Medical Branch pantoprazol 2-0 Yes 40mg Take 40 mg Univers e 40 mg EC 5-09 by mouth ity o f tablet 13:37: daily. [place] [address] Medical Branch metoprolol 2021-0 Yes 50mg Take 50 mg U nivers tartrate 50 5-09 by mouth ity of mg tablet 13:37: daily. [place] [address] Medical Branch dicyclomine 2021-0 Yes 20mg Take 20 mg Univers 20 mg 5-09 by mouth 2 ity of tablet 13:37: (two) [place] [address] times Medical daily. Branch hydrochloro 2021-0 Yes 25mg Take 25 mg Univers thiazide 5-09 by mouth ity of (ESIDRIX) 13:37: daily. [place] 25 mg 34 Medical tablet Branch atorvastati 2021-0 Yes 80mg Take 80 mg Univers n 80 mg 5-09 by mouth ity of tablet 13:37: at [place] [address] bedtime. Medical Branch pantoprazol 2021-0 Yes 40mg Take 40 mg Univers e 40 mg EC 5-09 by mouth ity o f tablet 13:37: daily. [place] [address] Medical Branch metoprolol 2-0 Yes 50mg Take 50 mg U nivers tartrate 50 5-09 by mouth ity of mg tablet 13:37: daily. [place] [address] Medical Branch dicyclomine 2021-0 Yes 20mg Take 20 mg Univers 20 mg 5-09 by mouth 2 ity of tablet 13:37: (two) [place] [address] times Medical daily. Branch hydrochloro 2-0 Yes 25mg Take 25 mg Univers thiazide 5-09 by mouth ity of (ESIDRIX) 13:37: daily. [place] 25 mg 34 Medical tablet Branch pantoprazol 2-0 Yes 40mg Take 40 mg Univers e 40 mg EC 5-09 by mouth ity o f tablet 13:37: daily. [place] [address] Medical Branch metoprolol 2-0 Yes 50mg Take 50 mg U nivers tartrate 50 5-09 by mouth ity of mg tablet 13:37: daily. [place] [address] Medical Branch dicyclomine 0 Yes 20mg Take 20 mg Univers 20 mg 5-09 by mouth 2 ity of tablet 13:37: (two) [place] 34 times Medical daily. Branch hydrochloro 0 Yes 25mg Take 25 mg Univers thiazide 5-09 by mouth ity of (ESIDRIX) 13:37: daily. [place] 25 [facility] [place] Branch pantoprazol 0 Yes 40mg Take 40 mg Univers e 40 mg EC 5-09 by mouth ity o f tablet 13:37: daily. [place] [address] Medical Branch metoprolol 0 Yes 50mg Take 50 mg U nivers tartrate 50 5-09 by mouth ity of mg tablet 13:37: daily. [place] [address] Medical Branch dicyclomine Yes 20mg Take 20 mg Univers 20 mg 5-09 by mouth 2 ity of tablet 13:37: (two) [place] [address] times Medical daily. Branch montelukast Yes [id number] 10mg Take 1 Univers 10 mg 5-09 tablet by ity of tablet 00:00: mouth [place] 00 daily. Medical Branch montelukast 0 Yes [id number] 10mg Take 1 Univers 10 mg 5-09 tablet by ity of tablet 00:00: mouth [place] 00 daily. Medical Branch montelukast Yes [id number] 10mg Take 1 Univers 10 mg 5-09 tablet by ity of tablet 00:00: mouth [place] 00 daily. Medical Branch montelukast 0 Yes [id number] 10mg Take 1 Univers 10 mg 5-09 tablet by ity of tablet 00:00: mouth [place] 00 daily. Medical Branch montelukast 0 Yes [id number] 10mg Take 1 Univers 10 mg 5-09 tablet by ity of tablet 00:00: mouth [place] 00 daily. Medical Branch montelukast 0 Yes [id number] 10mg Take 1 Univers 10 mg 5-09 tablet by ity of tablet 00:00: mouth [place] 00 daily. [facility] Branch montelukast 0 Yes [id number] 10mg Take 1 Univers 10 mg 5-09 tablet by ity of tablet 00:00: mouth [place] 00 daily. [facility] Yes [id number] 10mg Take 1 Univers 10 mg 5-09 tablet by ity of tablet 00:00: mouth [place] 00 daily. [facility] 0 Yes [id number] 10mg Take 1 Univers 10 mg 5-09 tablet by ity of tablet 00:00: mouth [place] 00 daily. [facility] 0 Yes [id number] 10mg Take 1 Univers 10 mg 5-09 tablet by ity of tablet 00:00: mouth [place] 00 daily. [facility] 0 Yes [id number] 10mg Take 1 Univers 10 mg 5-09 tablet by ity of tablet 00:00: mouth [place] 00 daily. [facility] 2022- No [id number] 10mg Take 1 Univers 10 mg 5-09 04-17 tablet by ity of tablet 00:00: 00:00 mouth [place] 00 :00 daily. [facility] 2022- No [id number] 10mg Take 1 Univers 10 mg 5-09 04-17 tablet by ity of tablet 00:00: 00:00 mouth [place] 00 :00 daily. Medical Branch nitroglycer [id number] 1 Univers in 0.4 mg 3-19 tablet ity of sublingual 00:00: under the [place] tablet 00 tongue Medical every 5 Branch (five) minutes as needed for Chest pain. nitroglycer 2021-[id number] 1 Univers in 0.4 mg 3-19 tablet ity of sublingual 00:00: under the [place] tablet 00 tongue Medical every 5 Branch (five) minutes as needed for Chest pain. nitroglycer 2021-[id number] 1 Univers in 0.4 mg 3-19 tablet ity of sublingual 00:00: under the [place] tablet 00 tongue Medical every 5 Branch (five) minutes as needed for Chest pain. nitroglycer 2021-[id number] 1 Univers in 0.4 mg 3-19 tablet ity of sublingual 00:00: under the [place] tablet 00 tongue Medical every 5 Branch (five) minutes as needed for Chest pain. nitroglycer 2022-[id number] 1 Univers in 0.4 mg 3-19 tablet ity of sublingual 00:00: under the [place] tablet 00 tongue Medical every 5 Branch (five) minutes as needed for Chest pain. nitroglycer 2-[id number] 1 Univers in 0.4 mg 3-19 tablet ity of sublingual 00:00: under the [place] tablet 00 tongue Medical every 5 Branch (five) minutes as needed for Chest pain. nitroglycer 2021-[id number] 1 Univers in 0.4 mg 3-19 tablet ity of sublingual 00:00: under the [place] tablet 00 tongue Medical every 5 Branch (five) minutes as needed for Chest pain. aspirin 81 2021-0 Yes [id number] 81mg Take 1 U nivers mg chewable 3-19 tablet by ity of tablet 00:00: mouth [place] 00 daily. Medical Branch nitroglycer 2021-[id number] 1 Univers in 0.4 mg 3-19 tablet ity of sublingual 00:00: under the [place] tablet 00 tongue Medical every 5 Branch (five) minutes as needed for Chest pain. aspirin 81 2021-0 Yes [id number] 81mg Take 1 U nivers mg chewable 3-19 tablet by ity of tablet 00:00: mouth [place] 00 daily. Medical Branch nitroglycer 2021-[id number] 1 Univers in 0.4 mg 3-19 tablet ity of sublingual 00:00: under the [place] tablet 00 tongue Medical every 5 Branch (five) minutes as needed for Chest pain. aspirin 81 2021-0 Yes [id number] 81mg Take 1 U nivers mg chewable 3-19 tablet by ity of tablet 00:00: mouth [place] 00 daily. Medical Branch nitroglycer 2-[id number] 1 Univers in 0.4 mg 3-19 tablet ity of sublingual 00:00: under the [place] tablet 00 tongue Medical every 5 Branch (five) minutes as needed for Chest pain. aspirin 81 2-0 Yes [id number] 81mg Take 1 U nivers mg chewable 3-19 tablet by ity of tablet 00:00: mouth [place] 00 daily. [facility] nitroglycer 2-[id number] 1 [facility] in 0.4 mg 3-19 tablet ity of sublingual 00:00: [place] [facility] [place] tablet 00 tongue Medical every 5 Branch (five) minutes as needed for Chest pain. aspirin 81 2021-0 Yes [id number] 81mg Take 1 U nivers mg chewable 3-19 tablet by ity of tablet 00:00: mouth [place] 00 daily. [facility] nitroglycer 2021-[id number] 1 [facility] in 0.4 mg 3-19 tablet ity of sublingual 00:00: [facility] [place] tablet 00 tongue Medical every 5 Branch (five) minutes as needed for Chest pain. aspirin 81 2021-0 Yes [id number] 81mg Take 1 [facility] nivers mg chewable 3-19 tablet by ity of tablet 00:00: mouth [place] 00 daily. [facility] nitroglycer 2021-[id number] 1 [facility] in 0.4 mg 3-19 tablet ity of sublingual 00:00: [place] [facility] [place] tablet 00 tongue Medical every 5 Branch (five) minutes as needed for Chest pain. aspirin 81 2021-0 Yes [id number] 81mg Take 1 U nivers mg chewable 3-19 tablet by ity of tablet 00:00: mouth [place] 00 daily. [facility] nitroglycer 2021-[id number] 1 [facility] in 0.4 mg 3-19 tablet ity of sublingual 00:00: [facility] [place] tablet 00 tongue Medical every 5 Branch (five) minutes as needed for Chest pain. aspirin 81 2021-0 Yes [id number] 81mg Take 1 [facility]ivers mg chewable 3-19 tablet by ity of tablet 00:00: mouth [place] 00 daily. [facility] nitroglycer 2021-[id number] 1 [facility] in 0.4 mg 3-19 tablet ity of sublingual 00:00: under [facility] [place] tablet 00 tongue Medical every 5 Branch (five) minutes as needed for Chest pain. aspirin 81 2021-0 Yes [id number] 81mg Take 1 [facility] mg chewable 3-19 tablet by ity of tablet 00:00: mouth [place] 00 daily. [facility] nitroglycer 2021-[id number] 1 [facility] in 0.4 mg 3-19 tablet ity of sublingual 00:00: under [facility] [place] tablet 00 tongue Medical every 5 Branch (five) minutes as needed for Chest pain. nitroglycer 2021-[id number] 1 [facility] in 0.4 mg 3-19 tablet ity of sublingual 00:00: [facility] [place] tablet 00 tongue Medical every 5 Branch (five) minutes as needed for Chest pain. nitroglycer 2021-[id number] 1 [facility] in 0.4 mg 3-19 tablet ity of sublingual 00:00: [facility] [place] tablet 00 tongue Medical every 5 Branch (five) minutes as needed for Chest pain. aspirin 81 2021-0 3- No [id number] 81mg Take 1 [facility] mg chewable 3-19 -28 tablet by it y of tablet 00:00: 00:00 mouth [place] 00 :00 daily. [facility] aspirin 81 2021-0 3- No [id number] 81mg Take 1 [facility] mg chewable 3-19 -28 tablet by it y of tablet 00:00: 00:00 mouth [place] 00 :00 daily. [facility] levothyroxi 2020-0 Yes [id number] 75ug Take 1 [facility] ne 75 mcg 9-29 tablet by ity o f tablet 00:00: mouth [place] 00 every Medical morning. Branch levothyroxi 2020-0 Yes [id number] 75ug Take 1 [facility] ne 75 mcg 9-29 tablet by ity o f tablet 00:00: mouth [place] 00 every Medical morning. Branch levothyroxi 2020-0 Yes [id number] 75ug Take 1 [facility] ne 75 mcg 9-29 tablet by ity o f tablet 00:00: mouth [place] 00 every Medical morning. Branch levothyroxi 2020-0 Yes [id number] 75ug Take 1 [facility] ne 75 mcg 9-29 tablet by ity o f tablet 00:00: mouth [place] 00 every Medical morning. Branch levothyroxi 2020-0 Yes [id number] 75ug Take 1 [facility] ne 75 mcg 9-29 tablet by ity o f tablet 00:00: mouth [place] 00 every Medical morning. Branch levothyroxi 2020-0 Yes [id number] 75ug Take 1 [facility] ne 75 mcg 9-29 tablet by ity o f tablet 00:00: mouth [place] 00 every Medical morning. Branch levothyroxi 2020-0 Yes [id number] 75ug Take 1 [facility] ne 75 mcg 9-29 tablet by ity o f tablet 00:00: mouth [place] 00 every Medical morning. Branch levothyroxi 2020-0 Yes [id number] 75ug Take 1 [facility] ne 75 mcg 9-29 tablet by ity o f tablet 00:00: mouth [place] 00 every Medical morning. Branch levothyroxi 2020-0 Yes [id number] 75ug Take 1 [facility] ne 75 mcg 9-29 tablet by ity o f tablet 00:00: mouth [place] 00 every Medical morning. Branch levothyroxi 2020-0 Yes [id number] 75ug Take 1 [facility] ne 75 mcg 9-29 tablet by ity o f tablet 00:00: mouth [place] 00 every Medical morning. Branch levothyroxi 2020-0 Yes [id number] 75ug Take 1 [facility] ne 75 mcg 9-29 tablet by ity o f tablet 00:00: mouth [place] 00 every Medical morning. Branch levothyroxi 2020-0 Yes [id number] 75ug Take 1 [facility] ne 75 mcg 9-29 tablet by ity o f tablet 00:00: mouth [place] 00 every Medical morning. Branch levothyroxi 2020-0 Yes [id number] 75ug Take 1 [facility] ne 75 mcg 9-29 tablet by ity o f tablet 00:00: mouth [place] 00 every Medical morning. Branch levothyroxi 2020-0 Yes [id number] 75ug Take 1 [facility] ne 75 mcg 9-29 tablet by ity o f tablet 00:00: mouth [place] 00 every Medical morning. Branch levothyroxi 2020-0 Yes [id number] 75ug Take 1 [facility] ne 75 mcg 9-29 tablet by ity o f tablet 00:00: mouth [place] 00 every Medical morning. Branch levothyroxi 2020-0 Yes [id number] 75ug Take 1 [facility] ne 75 mcg 9-29 tablet by ity o f tablet 00:00: mouth [place] 00 every Medical morning. Branch levothyroxi 2020-0 Yes [id number] 75ug Take 1 [facility] ne 75 mcg 9-29 tablet by ity o f tablet 00:00: mouth [place] 00 every Medical morning. Branch levothyroxi 2020-0 Yes [id number] 75ug Take 1 [facility] ne 75 mcg 9-29 tablet by ity o f tablet 00:00: mouth [place] 00 every Medical morning. Branch ketoconazol 2019-11 Yes [id number] Q.5D Apply M ethodi e (NIZORAL) 0-[address] 2 % cream 00:00: 2 (two) [facility] 00 times a l day. ketoconazol 2019-11 Yes [id number] Q.5D Apply M ethodi e (NIZORAL) 0-[address] 2 % cream 00:00: 2 (two) Hospi ta 00 times a l day. ketoconazol 2019-11- No [id number] Q.5D Apply Methodi e (NIZORAL) 0-29 09-[address] 2 % cream 00:00: 00:00 [facility] ([facility] :[facility] times a l day. ketoconazol 2019-11- No [id number] Q.5D Apply Methodi e (NIZORAL) 0-29 09-[address] 2 % cream 00:00: 00:00 2 (two) [facility] :00 times a l day. benazepriL 2019-11- No [id number] 10mg QD Take 1 [facility] (LOTENSIN) 0-29 10-30 tablet (10 st 10 MG 00:00: 04:59 mg total) Hospit a tablet 00 :00 by mouth l daily. benazepriL 2019-11- No [id number] 10mg QD Take 1 [facility] (LOTENSIN) 0-29 10-30 tablet (10 st 10 MG 00:00: 04:59 mg total) Hospit a tablet 00 :00 by mouth l daily. fluticasone 2020-0 Yes 100ug QD 2 sprays M ethodi propionate 7-31 ([address] (FLONASE) 00:00: total) by Hos [facility] 50 00 Each Nare l mcg/actuati route on nasal daily. spray fluticasone 2020-0 Yes 100ug QD 2 sprays M ethodi propionate 7-31 ([address] (FLONASE) 00:00: total) by Hos [place] 50 00 Each Nare l mcg/actuati route on nasal daily. spray fluticasone 2020-0 2021- No 100ug QD 2 sprays [facility] propionate 7-31 09-12 ([address] (FLONASE) 00:00: 00:00 total) by [facility] 50 00 :00 Each Nare l mcg/actuati route on nasal daily. spray fluticasone 2021- No 100ug QD 2 sprays [facility] propionate 06-12 ([address] (FLONASE) 00:00: 00:00 total) by [facility] 50 00 :00 Each Nare l mcg/actuati route on nasal daily. spray hydroCHLORO 2018-11 Yes [id number] TAKE 1 [facility] thiazide 0-[address] (HYDRODIURI 00:00: MOUTH Hospi ta L) 25 MG 00 DAILY l tablet BEFORE BREAKFAST pantoprazol 2018-11 Yes [id number] TAKE 1 [facility] e 0-[address] (PROTONIX) 00:00: MOUTH Hospit a 40 MG EC 00 DAILY l tablet BEFORE BREAKFAST metoprolol 2018-11 Yes [id number] TAKE 1 M ethodi tartrate 0-[address] (LOPRESSOR) 00:00: MOUTH TWO H [facility]spita 50 mg 00 TIMES l tablet DAILY levothyroxi 2018-11 Yes [id number] TAKE 1 [facility] ne 0-[address] (SYNTHROID) 00:00: MOUTH Hospi ta 25 mcg 00 DAILY l tablet amLODIPine 2018-11 Yes [id number] TAKE 1 M ethodi (NORVASC) 0-[address] 10 mg 00:00: MOUTH [facility]osp[facility] tablet 00 DAILY l atorvastati 2018-11 Yes [id number] TAKE 1 Methodi n (LIPITOR) 0-[address] 80 MG 00:00: MOUTH [facility]osp[facility] tablet 00 NIGHTLY l hydroCHLORO 2018-11 Yes [id number] TAKE 1 [facility] thiazide 0-[address] (HYDRODIURI 00:00: MOUTH Hospi ta L) 25 MG 00 DAILY l tablet BEFORE BREAKFAST pantoprazol 2018-11 Yes [id number] TAKE 1 [facility] e 0-[address] (PROTONIX) 00:00: MOUTH Hospit a 40 MG EC 00 DAILY l tablet BEFORE BREAKFAST metoprolol 2018-11 Yes [id number] TAKE 1 M ethodi tartrate 0-[address] (LOPRESSOR) 00:00: MOUTH TWO [facility]sp[facility] 50 mg 00 TIMES l tablet DAILY levothyroxi 2018-11 Yes [id number] TAKE 1 [facility] ne 0-[address] (SYNTHROID) 00:00: MOUTH Hospi ta 25 mcg 00 DAILY l tablet amLODIPine 2018-11 Yes [id number] TAKE 1 M ethodi (NORVASC) 0-[address] 10 mg 00:00: MOUTH [facility]osp[facility] tablet 00 DAILY l atorvastati 2018-11 Yes [id number] TAKE 1 Methodi n (LIPITOR) 0-[address] 80 MG 00:00: MOUTH [facility]osp[facility] tablet 00 NIGHTLY l hydroCHLORO 2018-11- No [id number] TAKE 1 [facility] thiazide 0-15 09-[address] (HYDRODIURI 00:00: 00:00 [facility]) 25 MG 00 :00 DAILY l tablet BEFORE BREAKFAST pantoprazol 2018-11- No [id number] TAKE 1 Methodi e 0-15 09-[address] (PROTONIX) 00:00: 00:00 MOUTH Hospi ta 40 MG EC 00 :00 DAILY l tablet BEFORE BREAKFAST metoprolol 2018-11- No [id number] TAKE 1 [facility] tartrate 0-15 09-[address] (LOPRESSOR) 00:00: 00:00 MOUTH TWO [facility]osp[facility] 50 mg 00 :00 TIMES l tablet DAILY levothyroxi 2018-11- No [id number] TAKE 1 [facility] ne 0-15 09-[address] (SYNTHROID) 00:00: 00:00 [facility] 25 mcg 00 :00 DAILY l tablet amLODIPine 2018-11- No [id number] TAKE 1 [facility] (NORVASC) 0-15 09-[address] 10 mg 00:00: 00:00 MOUTH [facility]osp[facility] tablet 00 :00 DAILY l atorvastati 2018-11- No [id number] TAKE 1 Methodi n (LIPITOR) 0-15 09-[address] 80 MG 00:00: 00:00 MOUTH [facility]ospita tablet 00 :00 NIGHTLY l hydroCHLORO 2018-11- No [id number] TAKE 1 [facility] thiazide 0-15 09-[address] (HYDRODIURI 00:00: 00:00 [facility] L) 25 MG 00 :00 DAILY l tablet BEFORE BREAKFAST pantoprazol 2018-11- No [id number] TAKE 1 Method[facility] e 0-15 09-[address] (PROTONIX) 00:00: 00:00 MOUTH Hospi ta 40 MG EC 00 :00 DAILY l tablet BEFORE BREAKFAST metoprolol 2018-11- No [id number] TAKE 1 [facility] tartrate 0-15 -[address] (LOPRESSOR) 00:00: 00:00 MOUTH TWO Hospita 50 mg 00 :00 TIMES l tablet DAILY levothyroxi 2018-11- No [id number] TAKE 1 [facility] ne 0-15 -[address] (SYNTHROID) 00:00: 00:00 [facility] 25 mcg 00 :00 DAILY l tablet amLODIPine 2018-11- No [id number] TAKE 1 [facility] (NORVASC) 0-15 -[address] 10 mg 00:00: 00:00 MOUTH [facility]ospita tablet 00 :00 DAILY l atorvastati 2018-11- No [id number] TAKE 1 Methodi n (LIPITOR) 0-15 -[address] 80 MG 00:00: 00:00 MOUTH Hospita tablet 00 :00 NIGHTLY l pantoprazol pantoprazol No 1 Q1D pantoprazo [place] e 40 mg e 40 mg le 40 mg Famil y tablet,arlene tablet,arlene tablet,del Practic yed release yed release ayed e Take 1 Take 1 release tablet tablet Take 1 every day every day tablet by oral by oral every day route. route. by oral route. [facility] No 1 BID [facility] Metoprolol Metoprolol Metoprolol Family Tartrate 50 Tartrate 50 Tartrate Practic mg tablet mg tablet 50 mg e Take 1 Take 1 tablet tablet tablet Take 1 twice a day twice a day tablet by oral by oral twice a route. route. day by oral route. amlodipine amlodipine No 1 Q1D amlodipine [facility] 5 mg tablet 5 mg tablet 5 mg F amily Take 1 Take 1 tablet Practic tablet tablet Take 1 e every day every day tablet by oral by oral every day route. route. by oral route. atorvastati atorvastati No 1 Q1D atorvastat [facility] n 80 mg n 80 mg in 80 mg Famil y tablet Take tablet Take tablet Practic 1 tablet 1 tablet Take 1 e every day every day tablet by oral by oral every day route. route. by oral route. dicyclomine dicyclomine No 1 QID dicyclomin [place] 20 mg 20 mg e 20 mg Family tablet Take tablet Take tablet Practic 1 tablet 4 1 tablet 4 Take 1 e times a day times a day tablet 4 by oral by oral times a route. route. day by oral route. hydrochloro hydrochloro No 1 Q1D hydrochlor [place] thiazide 50 thiazide 50 othiazide Family mg tablet mg tablet 50 mg Prac tic Take 1 Take 1 tablet e tablet tablet Take 1 every day every day tablet by oral by oral every day route. route. by oral route. levothyroxi levothyroxi No 1 Q1D levothyrox [facility] ne 25 mcg ne 25 mcg ine 25 mcg Family tablet Take tablet Take tablet Practic 1 tablet 1 tablet Take 1 e every day every day tablet by oral by oral every day route. route. by oral route. Immunizations Ordered Immunization Filled Date Status Comments Sour ce Name Immunization Name FLUCELVAX QUAD 2022-07-[address] 00:00:00 [facility] FLUCELVAX QUAD 2022-07-[address] 00:00:00 [facility] Influenza High Dose 2022-07-27 Completed Unive rsity of 00:00:00 [facility] Influenza High Dose 2022-07-27 Completed Unive rsity of 00:00:00 [facility] Influenza High Dose 2022-07-27 Completed Unive rsity of 00:00:00 [facility] Influenza High Dose 2022-07-27 Completed Unive rsity of 00:00:00 [facility] Influenza High Dose 2022-07-27 Completed Unive rsity of 00:00:00 [facility] Influenza High Dose 2022-07-27 Completed Unive rsity of 00:00:00 [facility] Influenza High Dose 2022-07-27 Completed Unive rsity of 00:00:00 [facility] Influenza High Dose 2022-07-27 Completed Unive rsity of 00:00:00 [facility] Influenza High Dose 2022-07-27 Completed Unive rsity of 00:00:00 [facility] Influenza High Dose 2022-07-27 Completed Unive rsity of 00:00:00 [facility] Influenza High Dose 2022-07-27 Completed Unive rsity of 00:00:00 [facility] Influenza High Dose 2022-07-27 Completed Unive rsity of 00:00:00 [facility] SARS-COV-2 COVID-19 2021 Completed Unive rsity of MODERNA 0.25ML 00:00:00 [place] [facility] BOOSTER VACCINE Branch SARS-COV-2 COVID-19 2021 Completed Unive rsity of MODERNA 0.25ML 00:00:00 [place] [facility] BOOSTER VACCINE Branch SARS-COV-2 COVID-19 2021 Completed Unive rsity of MODERNA 0.25ML 00:00:00 [place] [facility] BOOSTER VACCINE Branch SARS-COV-2 COVID-19 2021 Completed Unive rsity of MODERNA 0.25ML 00:00:00 [place] [facility] BOOSTER VACCINE Branch SARS-COV-2 COVID-19 2021 Completed Unive rsity of MODERNA 0.25ML 00:00:00 [place] [facility] BOOSTER VACCINE Branch SARS-COV-2 COVID-19 2021 Completed Unive rsity of MODERNA 0.25ML 00:00:00 [place] [facility] BOOSTER VACCINE Branch SARS-COV-2 COVID-19 2021 Completed Unive rsity of MODERNA 0.25ML 00:00:00 [place] [facility] BOOSTER VACCINE Branch SARS-COV-2 COVID-19 2021 Completed Unive rsity of MODERNA 0.25ML 00:00:00 [place] [facility] BOOSTER VACCINE Branch SARS-COV-2 COVID-19 2021 Completed Unive rsity of MODERNA 0.25ML 00:00:00 [place] [facility] BOOSTER VACCINE Branch SARS-COV-2 COVID-19 2021 Completed Unive rsity of MODERNA 0.25ML 00:00:00 [place] [facility] BOOSTER VACCINE Branch SARS-COV-2 COVID-19 2021 Completed Unive rsity of MODERNA 0.25ML 00:00:00 [place] [facility] BOOSTER VACCINE Branch SARS-COV-2 COVID-19 2021 Completed Unive rsity of MODERNA 0.25ML 00:00:00 [place] [facility] BOOSTER VACCINE Branch SARS-COV-2 COVID-19 2021 Completed Unive rsity of MODERNA 0.25ML 00:00:00 [place] [facility] BOOSTER VACCINE Branch SARS-COV-2 COVID-19 2021 Completed Unive rsity of MODERNA 0.25ML 00:00:00 [place] [facility] BOOSTER VACCINE Branch SARS-COV-2 COVID-19 2021 Completed Unive rsity of MODERNA 0.25ML 00:00:00 [place] [facility] BOOSTER VACCINE Branch SARS-COV-2 COVID-19 2021 Completed Unive rsity of MODERNA 0.25ML 00:00:00 [place] [facility] BOOSTER VACCINE Branch SARS-COV-2 COVID-19 2021 Completed Unive rsity of MODERNA 0.25ML 00:00:00 [place] [facility] BOOSTER VACCINE Branch SARS-COV-2 COVID-19 2021-02-10 Completed Unive rsity of MODERNA 12+ YRS 00:00:00 [place] [facility] ical VACCINE Branch SARS-COV-2 COVID-19 2021-02-10 Completed Unive rsity of MODERNA 12+ YRS 00:00:00 [place] [facility] ical VACCINE Branch MODERNA COVID-19 2021-02-10 Completed Methodis t MRNA VACCINATION 00:00:00 Hospital MODERNA COVID-19 2021-02-10 Completed Methodis t MRNA VACCINATION 00:00:00 Hospital MODERNA COVID-19 2021-02-10 Completed Methodis t MRNA VACCINATION 00:00:00 Hospital MODERNA COVID-19 2021-02-10 Completed Methodis t MRNA VACCINATION 00:00:00 Hospital SARS-COV-2 COVID-19 2021-02-10 Completed Unive rsity of MODERNA 12+ YRS 00:00:00 [place] [facility] ical VACCINE Branch SARS-COV-2 COVID-19 2021-02-10 Completed Unive rsity of MODERNA 12+ YRS 00:00:00 [place] [facility] ical VACCINE Branch SARS-COV-2 COVID-19 2021-02-10 Completed Unive rsity of MODERNA 12+ YRS 00:00:00 [place] [facility] ical VACCINE Branch SARS-COV-2 COVID-19 2021-02-10 Completed Unive rsity of MODERNA 12+ YRS 00:00:00 [place] [facility] ical VACCINE Branch SARS-COV-2 COVID-19 2021-02-10 Completed Unive rsity of MODERNA 12+ YRS 00:00:00 [place] [facility] ical VACCINE Branch SARS-COV-2 COVID-19 2021-02-10 Completed Unive rsity of MODERNA 12+ YRS 00:00:00 [place] [facility] ical VACCINE Branch SARS-COV-2 COVID-19 2021-02-10 Completed Unive rsity of MODERNA 12+ YRS 00:00:00 [place] [facility] ical VACCINE Branch SARS-COV-2 COVID-19 2021-02-10 Completed Unive rsity of MODERNA 12+ YRS 00:00:00 [place] [facility] ical VACCINE Branch SARS-COV-2 COVID-19 2021-02-10 Completed Unive rsity of MODERNA 12+ YRS 00:00:00 [place] [facility] ical VACCINE Branch SARS-COV-2 COVID-19 2021-02-10 Completed Unive rsity of MODERNA 12+ YRS 00:00:00 [place] [facility] ical VACCINE Branch SARS-COV-2 COVID-19 2021-02-10 Completed Unive rsity of MODERNA 12+ YRS 00:00:00 [place] [facility] ical VACCINE Branch SARS-COV-2 COVID-19 2021-02-10 Completed Unive rsity of MODERNA 12+ YRS 00:00:00 [place] [facility] ical VACCINE Branch SARS-COV-2 COVID-19 2021-02-10 Completed Unive rsity of MODERNA 12+ YRS 00:00:00 [place] [facility] ical VACCINE Branch SARS-COV-2 COVID-19 2021-02-10 Completed Unive rsity of MODERNA 12+ YRS 00:00:00 [place] [facility] ical VACCINE Branch SARS-COV-2 COVID-19 2021-02-10 Completed Unive rsity of MODERNA 12+ YRS 00:00:00 [place] [facility] ical VACCINE Branch SARS-COV-2 COVID-19 2021-01-13 Completed Unive rsity of MODERNA 12+ YRS 00:00:00 [place] [facility] ical VACCINE Branch SARS-COV-2 COVID-19 2021-01-13 Completed Unive rsity of MODERNA 12+ YRS 00:00:00 [place] [facility] ical VACCINE Branch SARS-COV-2 COVID-19 2021-01-13 Completed Unive rsity of MODERNA 12+ YRS 00:00:00 [place] [facility] ical VACCINE Branch SARS-COV-2 COVID-19 2021-01-13 Completed Unive rsity of MODERNA 12+ YRS 00:00:00 [place] [facility] ical VACCINE Branch SARS-COV-2 COVID-19 2021-01-13 Completed Unive rsity of MODERNA 12+ YRS 00:00:00 [place] [facility] ical VACCINE Branch SARS-COV-2 COVID-19 2021-01-13 Completed Unive rsity of MODERNA 12+ YRS 00:00:00 [place] [facility] ical VACCINE Branch SARS-COV-2 COVID-19 2021-01-13 Completed Unive rsity of MODERNA 12+ YRS 00:00:00 [place] [facility] ical VACCINE Branch SARS-COV-2 COVID-19 2021-01-13 Completed Unive rsity of MODERNA 12+ YRS 00:00:00 [place] [facility] ical VACCINE Branch SARS-COV-2 COVID-19 2021-01-13 Completed Unive rsity of MODERNA 12+ YRS 00:00:00 [place] [facility] ical VACCINE Branch SARS-COV-2 COVID-19 2021-01-13 Completed Unive rsity of MODERNA 12+ YRS 00:00:00 [place] [facility] ical VACCINE Branch SARS-COV-2 COVID-19 2021-01-13 Completed Unive rsity of MODERNA 12+ YRS 00:00:00 [place] [facility] ical VACCINE Branch SARS-COV-2 COVID-19 2021-01-13 Completed Unive rsity of MODERNA 12+ YRS 00:00:00 [place] [facility] ical VACCINE Branch SARS-COV-2 COVID-19 2021-01-13 Completed Unive rsity of MODERNA 12+ YRS 00:00:00 [place] [facility] ical VACCINE Branch SARS-COV-2 COVID-19 2021-01-13 Completed Unive rsity of MODERNA 12+ YRS 00:00:00 [place] [facility] ical VACCINE Branch SARS-COV-2 COVID-19 2021-01-13 Completed Unive rsity of MODERNA 12+ YRS 00:00:00 [place] [facility] ical VACCINE Branch SARS-COV-2 COVID-19 2021-01-13 Completed Unive rsity of MODERNA 12+ YRS 00:00:00 [place] [facility] ical VACCINE Branch SARS-COV-2 COVID-19 2021-01-13 Completed Unive rsity of MODERNA 12+ YRS 00:00:00 [place] [facility] VACCINE Branch MODERNA COVID-19 2021-01-13 Completed Methodis t MRNA VACCINATION 00:00:00 [facility] COVID-19 2021-01-13 Completed Methodis t MRNA VACCINATION 00:00:00 [facility] COVID-19 2021-01-13 Completed Methodis t MRNA VACCINATION 00:00:00 [facility] COVID-Graeme 2021-01-13 Completed Methodis t MRNA VACCINATION 00:00:00 [facility] Influenza High Dose 2020-09-10 Completed Unive rsity of 00:00:00 [facility] Influenza High Dose 2020-09-10 Completed Unive rsity of 00:00:00 [facility] Influenza High Dose 2020-09-10 Completed Unive rsity of 00:00:00 [facility] Influenza High Dose 2020-09-10 Completed Unive rsity of 00:00:00 [facility] Influenza High Dose 2020-09-10 Completed Unive rsity of 00:00:00 [facility] Influenza High Dose 2020-09-10 Completed Unive rsity of 00:00:00 [facility] Influenza High Dose 2020-09-10 Completed Unive rsity of 00:00:00 [facility] Influenza High Dose 2020-09-10 Completed Unive rsity of 00:00:00 [facility] Influenza High Dose 2020-09-10 Completed Unive rsity of 00:00:00 [facility] Influenza High Dose 2020-09-10 Completed Unive rsity of 00:00:00 [facility] Influenza High Dose 2020-09-10 Completed Unive rsity of 00:00:00 [facility] Influenza High Dose 2020-09-10 Completed Unive rsity of 00:00:00 [facility] Influenza High Dose 2020-09-10 Completed Unive rsity of 00:00:00 [facility] Influenza High Dose 2020-09-10 Completed Unive rsity of 00:00:00 [facility] Influenza High Dose 2020-09-10 Completed Unive rsity of 00:00:00 [facility] Influenza High Dose 2020-09-10 Completed Unive rsity of 00:00:00 [facility] Influenza High Dose 2020-09-10 Completed Unive rsity of 00:00:00 [facility] FLUZONE HIGH-DOSE PF 2020-09-10 Completed Meth odist 00:00:00 [facility] FLUZONE HIGH-DOSE PF 2020-09-10 Completed Meth odist 00:00:00 Hospital FLUZONE HIGH-DOSE PF 2020-09-10 Completed Meth odist 00:00:00 Hospital FLUZONE HIGH-DOSE PF 2020-09-10 Completed Meth odist 00:00:00 Hospital Pneumococcal 2019-09-05 Completed University o f Polysaccharide, 00:00:00 [place] [facility] PPSV23 (PNEUMOVAX) Branch Influenza High Dose 2019-09-05 Completed Unive rsity of 00:00:00 [facility] Pneumococcal 2019-09-05 Completed University o f Polysaccharide, 00:00:00 [place] [facility] PPSV23 (PNEUMOVAX) Branch Influenza High Dose 2019-09-05 Completed Unive rsity of 00:00:00 [facility] Pneumococcal 2019-09-05 Completed University o f Polysaccharide, 00:00:00 [place] [facility] PPSV23 (PNEUMOVAX) Branch Influenza High Dose 2019-09-05 Completed Unive rsity of 00:00:00 [facility] Pneumococcal 2019-09-05 Completed University o f Polysaccharide, 00:00:00 [place] [facility] PPSV23 (PNEUMOVAX) Branch Influenza High Dose 2019-09-05 Completed Unive rsity of 00:00:00 [facility] Pneumococcal 2019-09-05 Completed University o f Polysaccharide, 00:00:00 [place] [facility] PPSV23 (PNEUMOVAX) Branch Influenza High Dose 2019-09-05 Completed Unive rsity of 00:00:00 [facility] Pneumococcal 2019-09-05 Completed University o f Polysaccharide, 00:00:00 [place] [facility] PPSV23 (PNEUMOVAX) Branch Influenza High Dose 2019-09-05 Completed Unive rsity of 00:00:00 [facility] Pneumococcal 2019-09-05 Completed University o f Polysaccharide, 00:00:00 [place] [facility] PPSV23 (PNEUMOVAX) Branch Influenza High Dose 2019-09-05 Completed Unive rsity of 00:00:00 [facility] Pneumococcal 2019-09-05 Completed University o f Polysaccharide, 00:00:00 [place] [facility] PPSV23 (PNEUMOVAX) Branch Influenza High Dose 2019-09-05 Completed Unive rsity of 00:00:00 [facility] Pneumococcal 2019-09-05 Completed University o f Polysaccharide, 00:00:00 [place] [facility] PPSV23 (PNEUMOVAX) Branch Influenza High Dose 2019-09-05 Completed Unive rsity of 00:00:00 [facility] Pneumococcal 2019-09-05 Completed University o f Polysaccharide, 00:00:00 [place] [facility] PPSV23 (PNEUMOVAX) Branch Influenza High Dose 2019-09-05 Completed Unive rsity of 00:00:00 [facility] Pneumococcal 2019-09-05 Completed University o f Polysaccharide, 00:00:00 [place] [facility] PPSV23 (PNEUMOVAX) Branch Influenza High Dose 2019-09-05 Completed Unive rsity of 00:00:00 [facility] Pneumococcal 2019-09-05 Completed University o f Polysaccharide, 00:00:00 [place] [facility] PPSV23 (PNEUMOVAX) Branch Influenza High Dose 2019-09-05 Completed Unive rsity of 00:00:00 [facility] Pneumococcal 2019-09-05 Completed University o f Polysaccharide, 00:00:00 [place] [facility] PPSV23 (PNEUMOVAX) Branch Influenza High Dose 2019-09-05 Completed Unive rsity of 00:00:00 [facility] Pneumococcal 2019-09-05 Completed University o f Polysaccharide, 00:00:00 [place] [facility] PPSV23 (PNEUMOVAX) Branch Influenza High Dose 2019-09-05 Completed Unive rsity of 00:00:00 [facility] Pneumococcal 2019-09-05 Completed University o f Polysaccharide, 00:00:00 [place] [facility] PPSV23 (PNEUMOVAX) Branch Influenza High Dose 2019-09-05 Completed Unive rsity of 00:00:00 [facility] Pneumococcal 2019-09-05 Completed University o f Polysaccharide, 00:00:00 [place] [facility] PPSV23 (PNEUMOVAX) Branch Influenza High Dose 2019-09-05 Completed Unive rsity of 00:00:00 [facility] Pneumococcal 2019-09-05 Completed University o f Polysaccharide, 00:00:00 [place] [facility] PPSV23 (PNEUMOVAX) Branch Influenza High Dose 2019-09-05 Completed Unive rsity of 00:00:00 [facility] Pneumococcal 2019-09-05 Completed [facility] Polysaccharide 00:00:00 Hospital FLUZONE HIGH-DOSE PF 2019-09-05 Completed [facility]ist 00:00:00 Hospital Pneumococcal 2019-09-05 Completed [facility] Polysaccharide 00:00:00 Hospital FLUZONE HIGH-DOSE PF 2019-09-05 Completed [facility] odist 00:00:00 Hospital Pneumococcal 2019-09-05 Completed [facility] Polysaccharide 00:00:00 Hospital FLUZONE HIGH-DOSE PF 2019-09-05 Completed [facility]ist 00:00:00 Hospital Pneumococcal 2019-09-05 Completed [facility] Polysaccharide 00:00:00 Hospital FLUZONE HIGH-DOSE PF 2019-09-05 Completed [facility]ist 00:00:00 Hospital Influenza Virus 2019-08-13 Completed Universit y of Vaccine Quad IM 00:00:00 [place] [facility] Multi-dose 6+ MO Branch Influenza Virus 2019-08-13 Completed Universit y of Vaccine Quad IM 00:00:00 [place] [facility] Multi-dose 6+ MO Branch Influenza Virus 2019-08-13 Completed Universit y of Vaccine Quad IM 00:00:00 [place] [facility] Multi-dose 6+ MO Branch Influenza Virus 2019-08-13 Completed Universit y of Vaccine Quad IM 00:00:00 [place] [facility] Multi-dose 6+ MO Branch Influenza Virus 2019-08-13 Completed Universit y of Vaccine Quad IM 00:00:00 [place] [facility] Multi-dose 6+ MO Branch Influenza Virus 2019-08-13 Completed Universit y of Vaccine Quad IM 00:00:00 [place] [facility] Multi-dose 6+ MO Branch Influenza Virus 2019-08-13 Completed Universit y of Vaccine Quad IM 00:00:00 [place] [facility] Multi-dose 6+ MO Branch Influenza Virus 2019-08-13 Completed Universit y of Vaccine Quad IM 00:00:00 [place] [facility] Multi-dose 6+ MO Branch Influenza Virus 2019-08-13 Completed Universit y of Vaccine Quad IM 00:00:00 [place] [facility] Multi-dose 6+ MO Branch Influenza Virus 2019-08-13 Completed Universit y of Vaccine Quad IM 00:00:00 [place] [facility] Multi-dose 6+ MO Branch Influenza Virus 2019-08-13 Completed Universit y of Vaccine Quad IM 00:00:00 [place] [facility] Multi-dose 6+ MO Branch Influenza Virus 2019-08-13 Completed Universit y of Vaccine Quad IM 00:00:00 [place] [facility] Multi-dose 6+ MO Branch Influenza Virus 2019-08-13 Completed Universit y of Vaccine Quad IM 00:00:00 [place] [facility] Multi-dose 6+ MO Branch Influenza Virus 2019-08-13 Completed Universit y of Vaccine Quad IM 00:00:00 [place] [facility] Multi-dose 6+ MO Branch Influenza Virus 2019-08-13 Completed Universit y of Vaccine Quad IM 00:00:00 [place] [facility] Multi-dose 6+ MO Branch Influenza Virus 2019-08-13 Completed Universit y of Vaccine Quad IM 00:00:00 [place] [facility] Multi-dose 6+ MO Branch Influenza Virus 2019-08-13 Completed Universit y of Vaccine Quad IM 00:00:00 [place] [facility] Multi-dose 6+ MO Branch influenza, influenza, 2019-08-13 Completed [facility] injectable, injectable, 00:00:00 Practice quadrivalent quadrivalent FLUZONE QUAD 2019-08-13 Completed [facility] 00:00:00 Hospital FLUZONE QUAD 2019-08-13 Completed [facility] 00:00:00 Hospital FLUZONE QUAD 2019-08-13 Completed [facility] 00:00:00 Hospital FLUZONE QUAD 2019-08-13 Completed [facility] 00:00:00 Hospital TDAP 2019-03-29 Completed University of 00:00:00 [facility] TDAP 2019-03-29 Completed University of 00:00:00 [facility] Branch TDAP 2019-03-29 Completed University of 00:00:00 [facility] TDAP 2019-03-29 Completed University of 00:00:00 [facility] TDAP 2019-03-29 Completed University of 00:00:00 [facility] TDAP 2019-03-29 Completed University of 00:00:00 [facility] TDAP 2019-03-29 Completed University of 00:00:00 [facility] TDAP 2019-03-29 Completed University of 00:00:00 [facility] [place] [facility] TDAP 2019-03-29 Completed University of 00:00:00 [place] [facility] TDAP 2019-03-29 Completed University of 00:00:00 [facility] TDAP 2019-03-29 Completed University of 00:00:00 [place] [facility] TDAP 2019-03-29 Completed University of 00:00:00 [place] [facility] TDAP 2019-03-29 Completed University of 00:00:00 [facility] TDAP 2019-03-29 Completed University of 00:00:00 [facility] TDAP 2019-03-29 Completed University of 00:00:00 [facility] Branch TDAP 2019-03-29 Completed University of 00:00:00 [facility] TDAP 2019-03-29 Completed University of 00:00:00 [facility] Tdap 2019-03-29 Completed [facility] 00:00:00 [facility] Tdap 2019-03-29 Completed [facility] 00:00:00 [facility] Tdap 2019-03-29 Completed [facility] 00:00:00 [facility] Zoster(Zostavax)([facility] 2017-02-11 Completed Univ ersity of ngles) 00:00:00 [facility] Zoster Vaccine 2017-02-11 Completed University of Recombinant 00:00:00 [facility] Zoster(Zostavax)([facility] 2017-02-11 Completed Univ ersity of ngles) 00:00:00 [facility] Zoster Vaccine 2017-02-11 Completed University of Recombinant 00:00:00 [facility] Zoster(Zostavax)([facility] 2017-02-11 Completed Univ ersity of ngles) 00:00:00 [facility] Zoster Vaccine 2017-02-11 Completed University of Recombinant 00:00:00 [facility] Zoster(Zostavax)([facility] 2017-02-11 Completed Univ ersity of ngles) 00:00:00 [facility] Zoster Vaccine 2017-02-11 Completed University of Recombinant 00:00:00 [facility] Zoster(Zostavax)([facility] 2017-02-11 Completed Univ ersity of ngles) 00:00:00 [facility] Zoster Vaccine 2017-02-11 Completed University of Recombinant 00:00:00 [facility] Zoster(Zostavax)([facility] 2017-02-11 Completed Univ ersity of ngles) 00:00:00 [facility] Zoster Vaccine 2017-02-11 Completed University of Recombinant 00:00:00 [facility] Zoster(Zostavax)([facility] 2017-02-11 Completed Univ ersity of ngles) 00:00:00 [facility] Zoster Vaccine 2017-02-11 Completed University of Recombinant 00:00:00 [facility] Zoster(Zostavax)([facility] 2017-02-11 Completed Univ ersity of ngles) 00:00:00 [facility] Zoster Vaccine 2017-02-11 Completed University of Recombinant 00:00:00 [facility] Zoster(Zostavax)([facility] 2017-02-11 Completed Univ ersity of ngles) 00:00:00 [facility] Zoster Vaccine 2017-02-11 Completed University of Recombinant 00:00:00 [facility] Zoster(Zostavax)([facility] 2017-02-11 Completed Univ ersity of ngles) 00:00:00 [facility] Zoster Vaccine 2017-02-11 Completed University of Recombinant 00:00:00 [facility] Zoster(Zostavax)([facility] 2017-02-11 Completed Univ ersity of ngles) 00:00:00 [facility] Zoster Vaccine 2017-02-11 Completed University of Recombinant 00:00:00 [facility] Zoster(Zostavax)([facility] 2017-02-11 Completed Univ ersity of ngles) 00:00:00 [facility] Zoster Vaccine 2017-02-11 Completed University of Recombinant 00:00:00 [facility] Zoster(Zostavax)([facility] 2017-02-11 Completed Univ ersity of ngles) 00:00:00 [facility] Zoster Vaccine 2017-02-11 Completed University of Recombinant 00:00:00 [facility] Zoster(Zostavax)([facility] 2017-02-11 Completed Univ ersity of ngles) 00:00:00 [facility] Zoster Vaccine 2017-02-11 Completed University of Recombinant 00:00:00 [facility] Zoster(Zostavax)([facility] 2017-02-11 Completed Univ ersity of ngles) 00:00:00 [facility] Zoster Vaccine 2017-02-11 Completed University of Recombinant 00:00:00 [facility] Zoster(Zostavax)([facility] 2017-02-11 Completed Univ ersity of ngles) 00:00:00 [facility] Zoster Vaccine 2017-02-11 Completed University of Recombinant 00:00:00 [facility] Zoster(Zostavax)([facility] 2017-02-11 Completed Univ ersity of ngles) 00:00:00 [facility] Zoster Vaccine 2017-02-11 Completed University of Recombinant 00:00:00 [facility] Zoster 2017-02-11 Completed [facility] 00:00:00 [facility] Zoster 2017-02-11 Completed [facility] 00[facility]00:00 Hospital Zoster 2017-02-11 Completed [facility] 00:00:00 Hospital Zoster 2017-02-11 Completed [facility] 00:00:00 Hospital Pneumococcal 13 2016-02-19 Completed Universit y of Conjugate, PCV13 00:00:00 [place] [facility] (Prevnar 13) Branch Pneumococcal 13 2016-02-19 Completed Universit y of Conjugate, PCV13 00:00:00 [place] [facility] (Prevnar 13) Branch Pneumococcal 13 2016-02-19 Completed Universit y of Conjugate, PCV13 00:00:00 [place] [facility] (Prevnar 13) Branch Pneumococcal 13 2016-02-19 Completed Universit y of Conjugate, PCV13 00:00:00 [place] [facility] (Prevnar 13) Branch Pneumococcal 13 2016-02-19 Completed Universit y of Conjugate, PCV13 00:00:00 [place] [facility] (Prevnar 13) Branch Pneumococcal 13 2016-02-19 Completed Universit y of Conjugate, PCV13 00:00:00 [place] [facility] (Prevnar 13) Branch Pneumococcal 13 2016-02-19 Completed Universit y of Conjugate, PCV13 00:00:00 [place] [facility] (Prevnar 13) Branch Pneumococcal 13 2016-02-19 Completed Universit y of Conjugate, PCV13 00:00:00 [place] [facility] (Prevnar 13) Branch Pneumococcal 13 2016-02-19 Completed Universit y of Conjugate, PCV13 00:00:00 [place] [facility] (Prevnar 13) Branch Pneumococcal 13 2016-02-19 Completed Universit y of Conjugate, PCV13 00:00:00 [place] [facility] (Prevnar 13) Branch Pneumococcal 13 2016-02-19 Completed Universit y of Conjugate, PCV13 00:00:00 [place] [facility] (Prevnar 13) Branch Pneumococcal 13 2016-02-19 Completed Universit y of Conjugate, PCV13 00:00:00 [place] [facility] (Prevnar 13) Branch Pneumococcal 13 2016-02-19 Completed Universit y of Conjugate, PCV13 00:00:00 [place] [facility] (Prevnar 13) Branch Pneumococcal 13 2016-02-19 Completed Universit y of Conjugate, PCV13 00:00:00 [place] [facility] (Prevnar 13) Branch Pneumococcal 13 2016-02-19 Completed Universit y of Conjugate, PCV13 00:00:00 [place] [facility] (Prevnar 13) Branch Pneumococcal 13 2016-02-19 Completed Universit y of Conjugate, PCV13 00:00:00 [place] [facility] (Prevnar 13) Branch Pneumococcal 13 2016-02-19 Completed Universit y of Conjugate, PCV13 00:00:00 [place] [facility] (Prevnar 13) Branch Pneumococcal 2016-02-19 Completed [facility] Conjugate 13-Valent 00:00:00 [facility] Pneumococcal 2016-02-19 Completed [facility] Conjugate 13-Valent 00:00:00 [facility] Pneumococcal 2016-02-19 Completed [facility] Conjugate 13-Valent 00:00:00 [facility] Pneumococcal 2016-02-19 Completed [facility] Conjugate 13-Valent 00:00:00 [facility] Tetanus/Diptheria 2015-02-27 Completed Univers ity of 00:00:00 [facility] Zoster Vaccine 2015-02-27 Completed University of Recombinant 00:00:00 [facility] Tetanus/Diptheria 2015-02-27 Completed Univers ity of 00:00:00 [facility] Zoster Vaccine 2015-02-27 Completed University of Recombinant 00:00:00 [facility] Tetanus/Diptheria 2015-02-27 Completed Univers ity of 00:00:00 [facility] Zoster Vaccine 2015-02-27 Completed University of Recombinant 00:00:00 [facility] Tetanus/Diptheria 2015-02-27 Completed Univers ity of 00:00:00 [facility] Zoster Vaccine 2015-02-27 Completed University of Recombinant 00:00:00 [facility] Tetanus/Diptheria 2015-02-27 Completed Univers ity of 00:00:00 [facility] Zoster Vaccine 2015-02-27 Completed University of Recombinant 00:00:00 [facility] Tetanus/Diptheria 2015-02-27 Completed Univers ity of 00:00:00 [facility] Zoster Vaccine 2015-02-27 Completed University of Recombinant 00:00:00 [facility] Tetanus/Diptheria 2015-02-27 Completed Univers ity of 00:00:00 [facility] Zoster Vaccine 2015-02-27 Completed University of Recombinant 00:00:00 [facility] Tetanus/Diptheria 2015-02-27 Completed Univers ity of 00:00:00 [facility] Zoster Vaccine 2015-02-27 Completed University of Recombinant 00:00:00 [facility] Tetanus/Diptheria 2015-02-27 Completed Univers ity of 00:00:00 [facility] Zoster Vaccine 2015-02-27 Completed University of Recombinant 00:00:00 [facility] Tetanus/Diptheria 2015-02-27 Completed Univers ity of 00:00:00 [facility] Zoster Vaccine 2015-02-27 Completed University of Recombinant 00:00:00 [facility] Tetanus/Diptheria 2015-02-27 Completed Univers ity of 00:00:00 [facility] Zoster Vaccine 2015-02-27 Completed University of Recombinant 00:00:00 [facility] Tetanus/Diptheria 2015-02-27 Completed Univers ity of 00:00:00 [facility] Zoster Vaccine 2015-02-27 Completed University of Recombinant 00:00:00 [facility] Tetanus/Diptheria 2015-02-27 Completed Univers ity of 00:00:00 [facility] Zoster Vaccine 2015-02-27 Completed University of Recombinant 00:00:00 [facility] Tetanus/Diptheria 2015-02-27 Completed Univers ity of 00:00:00 [facility] Zoster Vaccine 2015-02-27 Completed University of Recombinant 00:00:00 [facility] Tetanus/Diptheria 2015-02-27 Completed Univers ity of 00:00:00 [facility] Zoster Vaccine 2015-02-27 Completed University of Recombinant 00:00:00 [facility] Tetanus/Diptheria 2015-02-27 Completed Univers ity of 00:00:00 [facility] Zoster Vaccine 2015-02-27 Completed University of Recombinant 00:00:00 [facility] Tetanus/Diptheria 2015-02-27 Completed Univers ity of 00:00:00 [facility] Zoster Vaccine 2015-02-27 Completed University of Recombinant 00:00:00 [facility] Td, Unspecified 2015-02-27 Completed [facility] 00:00:00 Hospital Td, Unspecified 2015-02-27 Completed [facility] 00:00:00 Hospital Td, Unspecified 2015-02-27 Completed [facility] 00:00:00 Hospital Td, Unspecified 2015-02-27 Completed [facility] 00:00:00 Hospital SARS-COV-2 COVID-19 Unknown Completed Unive rsity of MODERNA 12+ YRS [place] [facility] VACCINE Branch SARS-COV-2 COVID-19 Unknown Completed Unive rsity of MODERNA 12+ YRS [place] [facility] VACCINE Branch Influenza High Dose Unknown Completed Unive rsity of [facility] Influenza High Dose Unknown Completed Unive rsity of [facility] Influenza Virus Unknown Completed Universit y of Vaccine Quad IM [facility] ical Multi-dose 6+ MO Branch Pneumococcal 13 Unknown Completed Universit y of Conjugate, PCV13 [place] [facility] (Prevnar 13) Branch Pneumococcal Unknown Completed University o f Polysaccharide, [facility] ical PPSV23 (PNEUMOVAX) Branch Tetanus/Diptheria Unknown Completed [facility] TDAP Unknown Completed [facility] Zoster(Zostavax)([facility]cedes Unknown [facility] Zoster Vaccine Unknown Completed [facility] Zoster Vaccine Unknown Completed [facility] SARS-COV-2 COVID-19 Unknown Completed Unive rsity of [facility] 0.25ML [facility] BOOSTER VACCINE Branch Td, Unspecified Unknown Completed [facility] Pneumococcal Unknown Completed [facility] Conjugate 13-Valent [facility] Zoster Unknown Completed [facility] Tdap Unknown Completed [facility] Pneumococcal Unknown Completed [facility] Polysaccharide [facility] FLUZONE HIGH-DOSE PF Unknown Completed [facility] Completed [facility] FLUZONE HIGH-DOSE PF Unknown Completed [facility] COVID-19 Unknown Com[facility] MOD[facility]NA COVID-19 Unknown Com[facility] FLUCELVAX QUAD PF Unknown Completed [facility] Vital Signs Vital Name Observation Time Observation Value Comments Source Systolic blood 2023-02-27 19:23:00 137 mm[Hg] Univer sity of [facility] Diastolic blood 2023-02-27 19:23:00 79 mm[Hg] Unive rsity of [facility] Heart rate 2023-02-27 19:23:00 55 /min [facility] Body temperature 2023-02-27 19:23:00 37.06 Consuelo [facility] Body height 2023-02-27 19:23:00 157.5 cm [facility] Body weight 2023-02-27 19:23:00 101.016 kg [facility] BMI 2023-02-27 19:23:00 40.73 kg/m2 [facility] Oxygen saturation in 2023-02-27 19:23:00 94 /min [facility] Arterial blood by [facility] Pulse oximetry Branch Systolic blood 2023-01-10 13:55:00 163 mm[Hg] Univer sity of [facility] Diastolic blood 2023-01-10 13:55:00 67 mm[Hg] Unive rsity of [facility] Heart rate 2023-01-10 13:55:00 62 /min [facility] [place] [facility] Body temperature 2023-01-10 13:54:00 36.72 Consuelo Univ ersity of [facility] Body height 2023-01-10 13:54:00 157.5 cm [facility] [place] [facility] Body weight 2023-01-10 13:54:00 101.152 kg [facility] [place] [facility] BMI 2023-01-10 13:54:00 40.79 kg/m2 Universi ty of [facility] Systolic blood 2022-09-15 14:43:00 148 mm[Hg] Univer sity of pressure [facility] [place] [facility] Diastolic blood 2022-09-15 14:43:00 69 mm[Hg] Unive rsity of pressure [facility] Heart rate 2022-09-15 14:42:00 59 /min [facility] [place] [facility] Body temperature 2022-09-15 14:42:00 36.89 Consuelo Univ ers[facility] [place] [facility] Body weight 2022-09-15 14:42:00 100.699 kg [facility] [place] [facility] BMI 2022-09-15 14:42:00 40.60 kg/m2 [facility] [place] [facility] Systolic blood 2022-07-25 15:21:00 148 mm[Hg] Univer sity of pressure [facility] [place] [facility] Diastolic blood 2022-07-25 15:21:00 91 mm[Hg] Unive rsity of pressure [facility] [place] [facility] Heart rate 2022-07-25 15:20:00 77 /min [facility] [place] [facility] [place] Height 2020-02-24 00:00:00 63 [in_i] [facility] BMI (Body Mass 2020-02-24 00:00:00 38.3 kg/m2 [facility] Body Weight 2020-02-24 00:00:00 216 [lb_av] [facility] Practice Systolic blood 2023-04-26 13:46:03 134 mm[Hg] [facility] pressure Diastolic blood 2023-04-26 13:46:03 94 mm[Hg] [facility] pressure Heart rate 2023-04-26 13:46:03 58 /min [facility] Body temperature 2023-04-26 13:46:03 36.22 Consuelo [facility] Oxygen saturation in 2023-04-26 13:46:03 98 /min [facility] Arterial blood by Pulse oximetry Respiratory rate 2023-04-26 09:51:54 18 /min [facility] Body weight 2023-04-26 09:51:[address] [facility] [place] [place] BMI 2023-04-26 09:51:54 38.82 kg/m2 [facility] [place] Body height 2023-04-25 16:05:[address] [facility] [facility] [facility] [place] [place] Heart rate 2022-07-27 13:00:00 58 /min [facility] [place] [place] Systolic blood 2022-07-27 12:34:52 151 mm[Hg] [facility] pressure Diastolic blood 2022-07-27 12:34:52 63 mm[Hg] [facility] Hospital pressure Body temperature 2022-07-27 12:34:52 36.17 Consuelo [facility] Respiratory rate 2022-07-27 12:34:52 18 /min [facility] Oxygen saturation in 2022-07-27 12:34:52 95 /min [facility] Arterial blood by Pulse oximetry Body weight 2022-07-27 10:37:[address] [facility] [place] [place] BMI 2022-07-27 10:37:59 40.13 kg/m2 [facility] [place] [place] Body height 2022-07-26 01:33:[address] [facility] [place] [place] Systolic blood 2022-02-14 13:50:00 131 mm[Hg] [facility] pressure Diastolic blood 2022-02-14 13:50:00 56 mm[Hg] [facility] pressure Heart rate 2022-02-14 13:50:00 60 /min [facility] [place] [place] Respiratory rate 2022-02-14 13:50:00 16 /min [facility] Oxygen saturation in 2022-02-14 13:50:00 97 /min [facility] Arterial blood by Pulse oximetry Procedures Procedure Date / Time Performing Clinician Source Performed EXTERNAL PROVIDER RECORDS 2023-05-31 05:01:00 Doctor Unassigned, [facility] INSURANCE CORRESPONDENCE 2023-05-10 05:01:00 Doctor Unassigned, [facility] ESTIMATED GFR 2023-04-26 10:39:[address] [facility] [place] [place] CBC WITH PLATELET AND 2023-04-26 10:39:00 [facility] DIFFERENTIAL BASIC METABOLIC PANEL 2023-04-26 10:39:00 [facility] LIPID PANEL 2023-04-26 10:39:00 [facility] THYROID STIMULATING 2023-04-26 10:39:00 [facility] HORMONE T4, FREE 2023-04-26 10:39:00 [facility] CV LEFT HEART CATH LV 2023-04-25 22:27:40 [facility] GRAM WITH CORS CV SELECTIVE ANGIOGRAPHY 2023-04-25 22:27:40 [facility] BYPASS GRAFT CBC WITH PLATELET AND 2023-04-25 17:04:00 Floresita [facility] DIFFERENTIAL BASIC METABOLIC PANEL 2023-04-25 17:04:00 Floresita [facility] ESTIMATED GFR 2023-04-25 17:04:00 Pinky Canasammlinda Navarrete [facility]ital SMEAR REVIEW 2023-04-25 17:04:00 Pinky Canasammlinda Navarrete spital ECG PRE/POST OP 2023-04-25 16:11:33 Floresita Alycialinda Navarrete spital [facility] PATIENT FINANCIAL 2023-01-10 13:42:39 Doctor Unassigned, [facility] POLICY [facility] CONSENT/REFUSAL FOR 2022-09-15 14:26:46 Doctor Unassigned, [facility] DIAGNOSIS AND TREATMENT [facility] EXTERNAL PROVIDER RECORDS 2022-08-16 05:01:00 Doctor Unassigned, [facility] ZZCOVID-19 ANTI-SPIKE IGG 2022-07-27 10:19:00 George Gordon [facility] ANTIBODY TITER Arturo CBC WITH PLATELET AND 2022-07-27 10:19:00 [facility] DIFFERENTIAL BASIC METABOLIC PANEL 2022-07-27 10:19:00 [facility] ZZCOVID-19 SEROLOGY 2022-07-27 10:19:[address] [facility] [place] [place] PATIENT SURVEILLANCE Arturo ESTIMATED GFR 2022-07-27 10:19:00 [facility] ANTI XA, UNFRACTIONATED 2022-07-27 01:45:00 [facility] ANTI XA, UNFRACTIONATED 2022-07-26 23:53:00 Mat [facility] CV CTA CORONARY ARTERIES 2022-07-26 21:51:08 [facility] W CONTRAST CT CARDIAC OVERREAD 2022-07-26 21:08:[address] [facility] THYROID STIMULATING 2022-07-26 20:06:00 [facility] HORMONE T4, FREE 2022-07-26 20:06:00 [facility] LIPID PANEL 2022-07-26 20:06:00 [facility] TROPONIN T 2022-07-26 20:06:00 [facility] ANTI XA, UNFRACTIONATED 2022-07-26 16:38:00 [facility] CBC HEMOGRAM 2022-07-26 09:16:[address] [facility] PROTHROMBIN TIME WITH INR 2022-07-26 09:16:00 Mat [facility] ANTI XA, UNFRACTIONATED 2022-07-26 09:16:00 Mat [facility] COMPREHENSIVE METABOLIC 2022-07-26 09:16:00 Mat [facility] PANEL ESTIMATED GFR 2022-07-26 09:16:[address] [facility] TROPONIN T 2022-07-26 06:36:00 Rosalba Gonzales jyothi Ferreira R. COVID-19 QUALITATIVE 2022-07-26 03:19:00 Mat [facility] RT-PCR TROPONIN T 2022-07-26 03:19:00 Rosalba Gonzales jyothi Ferreira R. XR CHEST 1 VW PORTABLE 2022-07-26 01:46:00 [facility]. ECG 12-LEAD 2022-07-26 00:49:14 Rosalba Gonzales spital Jhon R. [place] CRITICAL CARE 2022-07-26 00:22:07 Fanta Rivero [facility] ILL/INJURED PATIENT INIT 30-74 MIN ECG ED PRELIMINARY 2022-07-26 00:22:07 Fanta Rivero [facility] INTERPRETATION CBC WITH PLATELET AND 2022-07-25 23:38:00 [facility] DIFFERENTIAL Jhon R. COMPREHENSIVE METABOLIC 2022-07-25 23:38:00 [facility] PANEL Jhon R. TROPONIN T 2022-07-25 23:38:00 [facility]. B NATRIURETIC PEPTIDE 2022-07-25 23:38:00 [facility] Jhon R. PARTIAL THROMBOPLASTIN 2022-07-25 23:38:00 [facility] TIME (PTT) Jhon R. PROTHROMBIN TIME WITH INR 2022-07-25 23:38:00 [facility] Jhon R. ESTIMATED GFR 2022-07-25 23:38:00 [facility] R[facility] CT CARDIAC OVERREAD 2022-02-14 14:01:51 Floresita [facility] CV CTA CORONARY ARTERIES 2022-02-14 13:26:03 Floresita [facility] W CONTRAST Plan of Care Planned Activity Planned Date Details Comments Source Future Scheduled Test 2023-09-06 DIABETES: RETINAL EYE [facility] 02:17:45 EXAM [code = DIABETES: RETINAL EYE EXAM] Future Scheduled Test 2023-09-06 Hepatitis C screening [facility] 02:17:45 (procedure) [code = 959026806] Future Scheduled Test 2023-09-06 HEPATITIS B VACCINES [facility] 02:17:45 (1 of 3 - Risk 3-dose series) [code = HEPATITIS B VACCINES (1 of 3 - Risk 3-dose series)] Future Scheduled Test 2023-09-06 SHINGLES VACCINES (2 [facility] 02:17:45 of 2) [code = SHINGLES VACCINES (2 of 2)] Future Scheduled Test 2023-09-06 DIABETIC FOOT EXAM [facility] 02:17:45 [code = DIABETIC FOOT EXAM] Future Scheduled Test 2023-09-06 URINE MICROALBUMIN [facility] 02:17:45 [code = URINE MICROALBUMIN] Future Scheduled Test 2023-09-06 COVID-19 VACCINE ([address] [place] [address] 02:17:45 ) [code = COVID-19 VACCINE ()] Future Scheduled Test 2023-09-06 INFLUENZA VACCINE [facility] 02:17:45 (#1) [code = INFLUENZA VACCINE (#1)] Future Scheduled Test 2023-02-15 DIABETES: RETINAL EYE [facility] 02:24:06 EXAM [code = DIABETES: RETINAL EYE EXAM] Future Scheduled Test 2023-02-15 Hepatitis C screening [facility] 02:24:06 (procedure) [code = [id number]] Future Scheduled Test 2023-02-15 HEPATITIS B VACCINES [facility] 02:24:06 (1 of 3 - Risk 3-dose series) [code = HEPATITIS B VACCINES (1 of 3 - Risk 3-dose series)] Future Scheduled Test 2023-02-15 SHINGLES VACCINES (2 [facility] 02:24:06 of 2) [code = SHINGLES VACCINES (2 of 2)] Future Scheduled Test 2023-02-15 DIABETIC FOOT EXAM [facility] 02:24:06 [code = DIABETIC FOOT EXAM] Future Scheduled Test 2023-02-15 URINE MICROALBUMIN [facility] 02:24:06 [code = URINE MICROALBUMIN] Future Scheduled Test 2023-02-15 COVID-19 VACCINE ([address] [place] [address] 02:24:06 Booster for Moderna series) [code = COVID-19 VACCINE (4 - Booster for Moderna series)] Future Scheduled Test 2023-02-15 INFLUENZA VACCINE [facility] 02:24:06 [code = INFLUENZA VACCINE] Future Scheduled Test 2022-12-08 DIABETES: RETINAL EYE [facility] 05:12:25 EXAM [code = DIABETES: RETINAL EYE EXAM] Future Scheduled Test 2022-12-08 Hepatitis C screening [facility] 05:12:25 (procedure) [code = [id number]] Future Scheduled Test 2022-12-08 SHINGLES VACCINES ([address] [place] [address] 05:12:25 of 2) [code = SHINGLES VACCINES (2 of 2)] Future Scheduled Test 2022-12-08 DIABETIC FOOT EXAM [facility] 05:12:25 [code = DIABETIC FOOT EXAM] Future Scheduled Test 2022-12-08 URINE MICROALBUMIN [facility] 05:12:25 [code = URINE MICROALBUMIN] Future Scheduled Test 2022-12-08 COVID-19 VACCINE (4 - [facility] 05:12:25 Booster for Moderna series) [code = COVID-19 VACCINE (4 - Booster for Moderna series)] Future Scheduled Test 2022-07-12 HEPATITIS B VACCINES [facility] 02:23:38 (1 of 3 - 3-dose series) [code = HEPATITIS B VACCINES (1 of 3 - 3-dose series)] Future Scheduled Test 2022-07-12 DIABETES: RETINAL EYE [facility] 02:23:38 EXAM [code = DIABETES: RETINAL EYE EXAM] Future Scheduled Test 2022-07-12 Hepatitis C screening [facility] 02:23:38 (procedure) [code = [id number]] Future Scheduled Test 2022-07-12 SHINGLES VACCINES (2 [facility] 02:23:38 of 3) [code = SHINGLES VACCINES (2 of 3)] Future Scheduled Test 2022-07-12 DIABETIC FOOT EXAM [facility] 02:23:38 [code = DIABETIC FOOT EXAM] Future Scheduled Test 2022-07-12 URINE MICROALBUMIN [facility] 02:23:38 [code = URINE MICROALBUMIN] Future Scheduled Test 2022-07-12 COVID-19 VACCINE (4 - [facility] 02:23:38 Booster for Moderna series) [code = COVID-19 VACCINE (4 - Booster for Moderna series)] Future Scheduled Test 2022-07-12 INFLUENZA VACCINE [facility] 02:23:38 [code = INFLUENZA VACCINE] Future Scheduled Test 2022-07-12 HEPATITIS B VACCINES [facility] 02:23:38 (1 of 3 - 3-dose series) [code = HEPATITIS B VACCINES (1 of 3 - 3-dose series)] Future Scheduled Test 2022-07-12 DIABETES: RETINAL EYE [facility] 02:23:38 EXAM [code = DIABETES: RETINAL EYE EXAM] Future Scheduled Test 2022-07-12 Hepatitis C screening [facility] 02:23:38 (procedure) [code = [id number]] Future Scheduled Test 2022-07-12 SHINGLES VACCINES (2 [facility] 02:23:38 of 3) [code = SHINGLES VACCINES (2 of 3)] Future Scheduled Test 2022-07-12 DIABETIC FOOT EXAM [facility] 02:23:38 [code = DIABETIC FOOT EXAM] Future Scheduled Test 2022-07-12 URINE MICROALBUMIN [facility] 02:23:38 [code = URINE MICROALBUMIN] Future Scheduled Test 2022-07-12 COVID-19 [facility] Booster for Moderna series) [code = COVID-19 VACCINE (4 - Booster for Moderna series)] Future Scheduled Test 2022-07-12 INFLUENZA VACCINE [facility] 02:23:38 [code = INFLUENZA VACCINE] Instructions [facility] Encounters Start End Encounter Admission Attending Care Care Encounter Source Date/Time Date/Time Type Type Clinicians Facility Department ID 2021-09-13 Emergency [facility] [id number] Univers 18:42:38 ity of [facility] 2023-05-31 2023-05-31 Orders Doctor ZIYAD 1.2.840.114 [id number] Univers 00:00:00 00:00:00 Only Unassigned, SONJA [id number] ity of [place] [facility] [id number] Arnaldo as [phone] [address] 2023-05-10 2023-05-10 Orders Doctor LACKEY 1.2.840.114 [id number] Univers 00:00:00 00:00:00 Only Unassigned, SONJA 350.1.13.10 ity of [place] [facility] 4.2.7.2.686 Arnaldo as [phone] [address] 2023-04-25 2023-04-26 Hospital Alycia Canas 1.2.840.1 [id number] Methodi 10:50:00 11:45:00 Encounter Samson [place] 19157.1.[address] 3.430.2.7 Hospit a .3.988656 l .8 2023-04-26 2023-04-26 Patient Cari Ervin.2.840.1 [id number] Methodi 00:00:00 00:00:00 Outreach Peg 38022.1.1 367 s t 3.430.2.7 Hospit a .3.257824 l .8 2023-04-25 2023-04-26 Outpatient [facility] [id number] [place] 00:00:00 00:00:[address] 2023-04-25 2023-04-25 Surgery Attar, 1.2.840.1 [id number] Methodi 15:30:00 16:55:[address] 3.430.2.7 Hospit a .3.100137 l .8 2023-04-25 2023-04-25 Travel 1.2.840.1 1.2.196.345 [id number] Methodi 00:00:00 00:00:[address] 3.430.2.7 0.2.7.3.698 Ho spita .3.552286 084.8 l .8 2023-04-24 2023-04-24 Documentat Provider, 1.2.840.1 [id number] Methodi 00:00:00 00:00:00 ion Unknown 89198.1.[address] 3.430.2.7 Hospit a .3.416298 l .8 2023-04-04 2023-04-04 Telephone [facility] 1.2.840.114 [id number] Univers 00:00:00 00:00:00 [facility] 350.1.13.10 it y of [place] 4.2.7.2.686 Arnaldo as JONAH?BLEA [phone] Co dical [address] MEDICAL OFFICE BUILDING 2023-04-03 2023-04-03 Outpatient Cristi_W MMCristy [facility] [id number] [place] 00:00:00 00:00:00 0522 Medical [facility] 2023-03-30 2023-03-30 Telephone [facility] 1.2.840.114 [id number] Univers 00:00:00 00:00:00 [facility] 350.1.13.10 it y of [place] 4.2.7.2.686 Arnaldo as JONAH?BLEA [phone] [address] OFFICE [facility] 2023-03-15 2023-03-15 Outpatient R [facility] [id number] Univers 10:15:00 10:15:[address] [facility] 2023-02-27 2023-02-27 Outpatient R [facility] [id number] Univers 14:45:00 15:36:[address] [facility] 2023-02-27 2023-02-27 Office [facility] 1.2.840.114 [id number] Univers 14:45:00 15:36:15 Visit [facility] 350.1.13.10 it y of [place] 4.2.7.2.686 Arnaldo as JONAH?BLEA [phone] [address] OFFICE [facility] 2023-01-10 2023-01-10 Office [facility] 1.2.840.114 [id number] Univers 08:00:00 08:15:00 Visit [facility] 350.1.13.10 it y of [place] 4.2.7.2.686 Arnaldo as JONAH?BLEA [phone] [address] OFFICE [facility] 2023-01-10 2023-01-10 Outpatient R [facility] [id number] Univers 08:00:00 08:00:[address] [facility] 2023-01-10 2023-01-10 Orders Doctor ZIYAD 1.2.840.114 [id number] Univers 00:00:00 00:00:00 Only Unassigned, SONJA 350.1.13.10 ity of [place] [facility] 4.2.7.2.686 Arnaldo as [phone] [address] 2022-11-15 2022-11-15 Refill [facility] 1.2.840.114 [id number] Univers 00:00:00 00:00:00 [facility] 350.1.13.10 it y of [place] 4.2.7.2.686 Arnaldo as JONAH?BLEA [phone] Co maite [address] MEDICAL OFFICE [facility] 2022-09-15 2022-09-15 Office [facility] 1.2.840.114 [id number] Univers 10:30:00 10:30:00 Visit [facility] 350.1.13.10 it y of [place] 4.2.7.2.686 Arnaldo as JONAH?BLEA [phone] [address] MEDICAL OFFICE [facility] 2022-09-15 2022-09-15 Outpatient R [facility] [id number] [facility] 10:30:00 09:59:35 GERARDO ity of [facility] 2022-09-15 2022-09-15 Orders Doctor LACKEY 1.2.840.114 [id number] Univers 00:00:00 00:00:00 Only Unassigned, SONJA 350.1.13.10 ity of [place] [facility] 4.2.7.2.686 Arnaldo as [phone] [address] 2022-08-16 2022-08-16 Orders Doctor ZIYAD 1.2.840.114 [id number] [facility] 00:00:00 00:00:00 Only Unassigned, SONJA 350.1.13.10 ity of [place] [facility] 4.2.7.2.686 Arnaldo as [phone] [address] 2022-08-11 2022-08-11 Telephone [facility] 1.2.840.114 [id number] [facility] 00:00:00 00:00:00 [facility] 350.1.13.10 it y of [place] 4.2.7.2.686 Arnaldo as JONAH?BLEA [phone] Co [address] MEDICAL OFFICE [facility] 2022-07-25 2022-07-27 [facility] MEGHA 1.2.840.1 [id number] [place] 00:00:00 00:00:00 Encounter SAMSON 28585.1.1 [address] .3.045251 .8 2022-07-26 2022-07-26 Hospital Megha, 1.2.840.1 [id number] Methodi 15:30:00 23:59:00 Encounter Samson O. 73914.1.1 962 3.430.2.7 Hospit a .3.138496 l .8 2022-07-25 2022-07-25 Office [facility] 1.2.840.114 [id number] Univers 10:30:00 11:00:00 Visit [place] 56313.1.13.10 it y of [place] 4.2.7.2.686 Arnaldo as JONAH?BLEA [phone] [address] OFFICE [facility] 2022-07-25 2022-07-25 Outpatient [facility] [id number] Univers 10:30:00 10:40:08 [facility] 2022-07-25 2022-07-25 Outpatient [facility] [id number] Univers 10:30:00 10:30:00 [facility] 2022-06-05 2022-06-05 Refill [facility] 1.2.840.114 [id number] Univers 00:00:00 00:00:00 [place] 5[address].1.13.10 it y of [place] 4.2.7.2.686 Arnaldo as JONAH?BLEA [phone] [address] OFFICE [facility] 2022-03-21 2022-03-21 Office [facility] 1.2.840.114 [id number] Univers 14:00:00 14:00:00 Visit [place] 56313.1.13.10 it y of [place] 4.2.7.2.686 Arnaldo as JONAH?BLEA [phone] [address] OFFICE [facility] 2022-03-21 2022-03-21 Outpatient [facility] [id number] Univers 14:00:00 13:51:43 [facility] 2022-02-14 2022-02-14 Hospital Attar, 1.2.840.1 [id number] Methodi 09:01:50 23:59:00 Encounter Alycia 63583.1.1 440 s t 3.430.2.7 Hospit a .3.108109 l .8 2022-02-14 2022-02-14 Hospital Attar, 1.2.840.1 [id number] Methodi 07:52:29 09:00:00 Encounter Alycia 65806.1.1 655 s t 3.430.2.7 Hospit a .3.939086 l .8 2022-02-14 2022-02-14 Travel 1.2.840.1 1.2.695.851 [id number] Methodi 00:00:00 00:00:[address] 3.430.2.7 0.2.7.3.698 Ho spita .3.204680 084.8 l .8 2022-02-09 2022-02-09 Travel 1.2.840.1 1.2.507.659 [id number] Methodi 00:00:00 00:00:[address] 3.430.2.7 0.2.7.3.698 Ho spita .3.543316 084.8 l .8 2022-02-09 2022-02-09 Transcribe Attar, 1.2.840.1 [id number] Methodi 00:00:00 00:00:00 Orders Alycia 66831.1.[address] 3.430.2.7 Hospit a .3.222587 l .8 2022-02-09 2022-02-09 Transcribe Attar, 1.2.840.1 [id number] Methodi 00:00:00 00:00:00 Orders Alycia 33164.1.[address] 3.430.2.7 Hospit a .3.960302 l .8 2022-01-31 2022-01-31 Outpatient Candace MARTINEZ [facility] [id number] Univers 13:00:00 13:00:00 GERARDO alfonso [facility] 2022-01-31 2022-01-31 Patient Doctor ZIYAD 1.2.840.114 [id number] Univers 00:00:00 00:00:00 Secure Msg UnassignedSONJA 350.1.13.10 ity of [place] [facility] 4.2.7.2.686 Arnaldo as [phone] [facility] 019 Branch 2022-01-31 2022-01-31 Transition UNIQUE Salcedo 1.2.840.114 [id number] Univers 00:00:00 00:00:00 of Care Leah LYN 350.1.13.10 it y [place] [phone] [facility] 403 Branch 2022-01-26 2022-01-29 Inpatient X BREA [facility] [id number] Univers 21:57:00 10:39:00 ZURDO ity of [facility] 2022-01-26 2022-01-29 Hospital Deborah Cleveland [facility] 1.2.84 0.114 [id number] Univers 21:57:00 10:39:00 Encounter Kailey [place] 350.1.13.10 ity of [place] 4.2.7.2.686 [facility] [id number] [facility] 081 [place] 2021-09-30 2021-09-30 [facility] [id number] Univers 11:30:00 11:30:[address] [facility] 2021-09-30 2021-09-30 Office [facility] 1.2.840.114 [id number] Univers 11:03:33 11:18:33 Visit [facility] 350.1.13.10 it y of [place] 4.2.7.2.686 Arnaldo as JONAH?BLEA [phone] [address] MEDICAL OFFICE BUILDING 2021-08-11 2021-08-11 Telephone [facility] 1.2.840.114 [id number] Univers 00:00:00 00:00:00 [facility] 350.1.13.10 it y of [place] 4.2.7.2.686 Arnaldo as Jonah?Blea [phone] Co maite mathews 044 [place] [facility] 2021-08-11 2021-08-11 Telephone Michelle [facility] 1.2.840.114 [id number] Univers 00:00:00 00:00:00 [facility] 350.1.13.10 it y of [place] 4.2.7.2.686 Arnaldo as Professio [phone] Co [place] 044 [place] Office [facility] 2021-08-10 2021-08-10 Housing [facility] Residence Life Director Lab, Ang - Db [facility] 1.2.840.1 14 [id number] Univers 09:48:57 10:03:57 Visit Gerardo [facility] 350.1.13 .10 ity of [place] 4.2.7.2.686 Arnaldo as Jonah?Blea [phone] Co maite mathews 353 [facility] Office [facility] 2021-08-10 2021-08-10 Outpatient R [facility] [id number] Univers 10:00:00 10:00:00 ity [facility] 2021-08-03 2021-08-03 Outpatient R [facility] [id number] Univers 09:00:00 09:00:[address] [facility] 2021-08-02 2021-08-02 Outpatient R MICHELLE [facility] [id number] Univers 13:30:00 13:30:00 [facility] 2021-08-02 2021-08-02 [facility] 1.2.840.114 [id number] Univers 12:42:34 13:12:34 Visit [facility] 350.1.13.10 it y of [place] 4.2.7.2.686 Arnaldo as Jonah?Blea [phone] Co maite mathews [address] [place] [address] Office [facility] 2021-07-13 2021-07-13 Outpatient R RASHAAD [facility] [id number] Univers 17:30:00 17:30:00 VIKY ity [facility] 2021-07-13 2021-07-13 Nurse Therapy, Adc Covid Infusion [facility] 1.2.840.114 [id number] Univers 15:39:25 16:39:25 Visit Viky Uriarte Wendy 350.1.13.10 it[place] [phone] [place] [id number] Branch 2021-07-13 2021-07-13 Nurse Therapy, Adc Covid Infusion [facility] 1.2.840.114 [id number] Univers 15:39:25 16:39:25 Visit Demetri Uriarteak Keke Wendy 350.1.13.10 [facility] [place] 4[place]2.7.2.686 [place] [id number] [place] 390933 [place] 2021-07-13 2021-07-13 Orders Doctor ZIYAD 1.2.840.114 [id number] Univers 00:00:00 00:00:00 Only Unassigned, SONJA 350.1.13.10 ity of [place] [facility] 4.2.7.2.686 Arnaldo as [id number] [address] 2021-07-13 2021-07-13 Orders Doctor ZIYAD 1.2.840.114 [id number] Univers 00:00:00 00:00:00 Only Unassigned, SONJA 350.1.13.10 ity of [place] [facility] 4.2.7.2.686 Arnaldo as [id number] [address] 2021-07-09 2021-07-09 Emergency Mal, [facility] [id number] [id number] Univers 20:56:00 23:07:00 Garrett Monsalve 350.1.13.10 i ty of [place] 4.2.7.2.686 [facility] [place] [id number] [address] 2021-07-09 2021-07-09 Emergency Malya, [facility] 1.2.083.024 [id number] Univers 20:56:00 23:07:00 Garrett Monsalve 350.1.13.10 i ty of [place] 4.2.7.2.686 [facility] [id number] [address] 2021-07-09 2021-07-09 Urgent Ebrahim, [facility] [id number] [facility] Univers 20:11:56 20:31:56 Care [facility] [id number] it y of [place] [id number] Arnaldo as Jonah?Blea [phone] [place] [address] Medical Office Building 2021-07-09 2021-07-09 Outpatient Candace [facility]ON [facility] [id number] Univers 20:20:00 20:20:00 BRONWYNIA ity [facility] 2021-07-09 2021-07-09 Orders Doctor ZIYAD [id number] [facility] 00:00:00 00:00:00 Only Unassigned, SONJA [id number] ity of [place] [facility] [id number] Arnaldo as [phone] [address] 2021-07-09 2021-07-09 Orders Doctor ZIYAD [id number] [facility] 00:00:00 00:00:00 Only Unassigned, SONJA [id number] ity of [place] [facility] [id number] Arnaldo as [phone] [address] 2021-06-03 2021-06-03 [facility] [id number] 318 [place] 00:00:00 00:00:00 CHERYL 223 Method i 2021-04-22 2021-04-22 Outpatient [facility], [facility] [id number] 863 [place] 00:00:00 00:00:00 CHERYL [address] 2021-04-16 2021-04-16 Outpatient Miller_S_AH VFP VFP [phone] [facility] 01:57:00 01:57:00 [id number] Family Practic e 2021-04-15 2021-04-15 Outpatient [facility] [id number] 004 [place] 00:00:00 00:00:00 CHERYL [address] 2021-04-01 2021-04-01 [facility] [id number] 863 [place] 00:00:00 00:00:00 CHERYL [address] 2021-03-12 2021-03-12 Outpatient [facility] [id number] 900 [place] 00:00:00 00:00:00 CHERYL [address] 2021-03-08 2021-03-08 Outpatient AHUERO, [facility] [id number] 264 [place] 00:00:00 00:00:00 CHERYL [address] 2021-02-24 2021-02-24 Outpatient Sherlyn-Mbayo VFP VFP [phone] [facility] 11:35:00 11:35:00 _A_AH 30153 Family Practic e 2021-02-08 2021-02-08 Outpatient AHUERO, [facility] [id number] 389 [place] 00:00:00 00:00:00 CHERYL [address] 2021-01-07 2021-01-07 Outpatient AHUERO, [facility] [id number] 865 [place] 00:00:00 00:00:00 CHERYL [address] 2021-01-07 2021-01-07 Outpatient AHUERO, [facility] [id number] 545 [place] 00:00:00 00:00:00 CHERYL [address] 2020-09-10 2020-09-10 Outpatient POPE, [facility] [id number] 555 [place] 00:00:00 00:00:00 ISI [address] 2020-09-10 2020-09-10 Outpatient AHUERO, [facility] [id number] 261 [place] 00:00:00 00:00:00 CHERYL [address] 2020-06-12 2020-06-12 Outpatient POPE, [facility] [id number] 634 [place] 00:00:00 00:00:00 ISI [address] 2020-04-09 2020-04-09 Outpatient AHUERO, [facility] [id number] 130 [place] 00:00:00 00:00:00 CHERYL [address] 2020-03-26 2020-03-26 Outpatient Sherlyn-Mbayo VFP VFP [phone] [facility] 04:17:00 04:17:00 _A_AH 61506 Family Practic e 2020-03-11 2020-03-11 Outpatient Sherlyn-Mbayo VFP VFP [phone] [facility] 04:48:00 04:48:00 _A_AH 86715 Family Practic e 2020-02-24 2020-02-24 Aleisha VFP [place] - [id number] [place] 00:00:00 00:00:00 Jenniffer [facility] Fam kenny leon STRATEGIC SOURCING CONSULTANT: Medical - Practi c [address] [email or web address]_ e [facility], [address], [place] [address] , Ph. 2020-02-12 2020-02-12 Outpatient Valeri VFP VFP [id number] [facility] 10:36:00 10:36:00 _A_AH [id number] Family Practic e 2020-02-06 2020-02-06 Outpatient [facility] [id number] 923 [place] 00:00:00 00:00:00 CHERYL [address] 2020-01-22 2020-01-22 [facility] [id number] 645 [place] 00:00:00 00:00:00 CHERYL [address] 2020-01-09 2020-01-09 Outpatient [facility] [id number] 923 [place] 00:00:00 00:00:00 CHERYL [address] 2019-12-24 2019-12-24 Outpatient [facility] [id number] 033 [place] 00:00:00 00:00:00 CHERYL [address] 2019-11-29 2019-11-29 Outpatient [facility] [id number] 615 [place] 00:00:00 00:00:00 CHERYL [address] Results Test Description Test Time Test Comments Results Result Comments Source ECG Pre/Post Op 2023-04-26 21:39:34 Test Item Value Reference Range Interpretation Comme nts Ventricular rate (test code = 253) 66 Atrial rate (test code = 255) 66 VT interval (test code = 266) 164 QRSD interval (test code = 260) 80 QT interval (test code = 264) 416 QTC interval (test code = 265) 436 P axis 1 (test code = 267) 39 QRS axis 1 (test code = 268) 29 T wave axis (test code = 270) 123 EKG impression (test code = 273) Normal sinus rhythm-ST elevation, consider inferior injury or acute infarct-Abnormal ECG-In automated comparison with ECG of 25-JUL-2022 19:49,-premature atrial complexes are no longer present-Criteria for Septal infarct are no longer present- [facility] lab [id number] 13:19:17 Test Item Value Reference Range Interpretation Comments Cath EF Estimated 60 % (test code = 7944641177) NOEL (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 Left main normal. LAD occluded at midpoint. Circumflex 50% ostial lesion followed by 99% mid lesion and distal circumflex is occluded. RCA codominant several 50% lesions proximal mid occluded distally. CARDOZO to LAD patent with good distal flow distal artery is small. 7 is a bypass grafts to the distal circumflex is patent and the distal right is patent. Left ventriculography shows hypokinetic ventricle ejection fraction more than 70%. Coronary Findings Diagnostic Dominance: RightLeft Anterior Descending: Mid LAD lesion is 100% stenosed. Dist LAD lesion is 50% stenosed. Left Circumflex: Ost Cx to Prox Cx lesion is 50% stenosed. Mid Cx to Dist Cx lesion is 99% stenosed. Second Obtuse Marginal Branch: 2nd Mrg lesion is 99% stenosed. Right Coronary Artery: Prox RCA lesion is 50% stenosed. Mid RCA lesion is 50% stenosed. Dist RCA lesion is 95% stenosed. CARDOZO Graft To Dist LADGraft To Dist RCAGraft To 3rd MrgInterventionNo interventions have been documented.Left VentricleThe LV size is in the upper limits of normal. The LV systolic function is normal. LV systolic pressure is elevated. LV end diastolic pressure is elevated. The ejection fraction is greater than 55% by visual estimate.Aortic ValveThere is normal aortic valve motion. There is no aortic valve stenosis.Wall MotionThe following segments are hyperkinetic: mid anterior, mid inferior, basilar anterior, basilar inferior, apical anterior and apical inferior. [facility] 12 [id number] 20:25:45 Test Item Value Reference Range Interpretation Comments Ventricular rate (test code = 253) Atrial rate (test code = 255) VT interval (test code = 266) QRSD interval (test code = 260) QT interval (test code = 264) QTC interval (test code = 265) P axis 1 (test code = 267) QRS axis 1 (test code = 268) T wave axis (test code = 270) EKG impression (test Sinus rhythm with code = 273) premature atrial complexes-Septal infarct (cited on or before 12-OCT-2015)-ST & T wave abnormality, consider lateral ischemia-Abnormal ECG-In automated comparison with ECG of 25-JUL-2022 19:06,-premature atrial complexes are now present-Vent. rate has decreased BY 73 BPM-Questionable change in initial forces of Anterior leads-Inverted T waves have replaced nonspecific T wave abnormality in Lateral leads- Lab Interpretation (test Abnormal code = 25603-8) [facility] 12 [id number] 20:25:45 Test Item Value Reference Range Interpretation Comments Ventricular rate (test 67 code = 253) Atrial rate (test code = 67 255) VT interval (test code = 176 266) QRSD interval (test code 84 = 260) QT interval (test code = 438 264) QTC interval (test code 462 = 265) P axis 1 (test code = 39 267) QRS axis 1 (test code = 33 268) T wave axis (test code = 130 270) EKG impression (test Sinus rhythm with code = 273) premature atrial complexes-Septal infarct (cited on or before 12-OCT-2015)-ST & T wave abnormality, consider lateral ischemia-Abnormal ECG-In automated comparison with ECG of 25-JUL-2022 19:06,-premature atrial complexes are now present-Vent. rate has decreased BY 73 BPM-Questionable change in initial forces of Anterior leads-Inverted T waves have replaced nonspecific T wave abnormality in Lateral leads- Lab Interpretation (test Abnormal code = 91236-3) [facility] AsntvxtjDJFY-TjE-1 (COVID-19) RNA [Presence] in Respiratory specimen by TERRA with probe [id number] 01:53:20 Test Item Value Reference Range Interpretation Comments SARS-CoV-2 (COVID-19) RNA Not detected [Presence] in Respiratory specimen by TERRA with probe detection (test code = 94339-8) Whether patient is employed in a Unknown healthcare setting (test code = 80108-3) Whether the patient has symptoms Unknown related to condition of interest (test code = 49244-9) Whether the patient was Unknown hospitalized for condition of interest (test code = 87634-1) Whether the patient was admitted Unknown to intensive care unit (ICU) for condition of interest (test code = 81923-0) Whether patient resides in a Unknown congregate care setting (test code = 68142-9) status (test code = Unknown 43492-8) Date and time of symptom onset Unknown (test code = 19526-9) [facility] ED Preliminary Interpretation - Not an [id number] 00:22:07 Test Item Value Reference Range Interpretation Comments NOEL (test code = NOEL) Fanta Rivero MD 07/27/2022 3:05 [facility] ED Preliminary Interpretation - Not an OrderPerformed by: Fanta Rivero MDAuthorized by: Fanta Rivero MD ECG reviewed by ED Physician in the absence of a grab setter: yes Interpretation: Interpretation: abnormal Rate: ECG rate: 145 ECG rate assessment: tachycardic Rhythm: Rhythm: SVT Comments: EKG # 3 performed at 22:20 Lab Interpretation Abnormal (test code = 14412-0) [facility] ED Preliminary Interpretation - Not an [id number] 00:22:07 Test Item Value Reference Range Interpretation Comments NOEL (test code = NOEL) Fanta Rivero MD 07/27/2022 3:05 [facility] ED Preliminary Interpretation - Not an OrderPerformed by: Fanta Rivero MDAuthorized by: Fanta Rivero MD ECG reviewed by ED Physician in the absence of a grab setter: yes Interpretation: Interpretation: abnormal Rate: ECG rate: 145 ECG rate assessment: tachycardic Rhythm: Rhythm: SVT Comments: EKG # 3 performed at 22:20 Lab Interpretation Abnormal (test code = 09366-5) [facility] RNA [Presence] in Respiratory specimen by TERRA with probe [id number] 18:20:20 Test Item Value Reference Range Interpretation Comments SARS-CoV-2 (COVID-19) RNA Not detected Not-Detected [Presence] in Respiratory specimen by TERRA with probe detection (test code = 47203-7) Whether patient is employed in a healthcare setting (test code = 84590-4) Whether the patient has symptoms related to condition of interest (test code = 77183-4) Patient was hospitalized because of this condition (test code = 20461-0) Whether the patient was admitted to intensive care unit (ICU) for condition of interest (test code = 13896-0) Whether patient resides in a congregate care setting (test code = 12882-9) KEVIN LANDERS
[2023-09-09 19:49] LABS: Absolute Lymphocytes (CBC) 1.8 K/uL (0.7-4.9); Hematocrit 39.6 % (36.0-45.0); Lymphocytes % 25.6 % (15.3-44.8); MPV 8.8 fL (7.6-11.3); Platelets 196 thou/uL (152-406); RBC Red Blood Cell Count 4.55 M/uL (3.86-4.86)
[2023-09-09 19:51] LABS: Protime INR 1.45
[2023-09-09] MEDS ORDERED: NITROGLYCERIN 0.4 MG/TAB SL ONE (19:53)
[2023-09-09] MEDS ORDERED: ASPIRIN 81 MG CHEWABLE TABLET ONE (19:53)
[2023-09-09 20:14] LABS: Albumin 3.6 g/dL (3.4-5.0); Bilirubin Direct 0.2 mg/dL (0-0.2); Bilirubin Indirect, Calculated 0.4 mg/dL (0.2-0.8); Bilirubin Total 0.6 mg/dL (0.2-1.0); Potassium 3.4 mEq/L (3.5-5.1); Protein, Total 7.9 g/dL (6.4-8.2)
--- NOTE | 2023-09-09 20:16 | RAD REPORT ---
EXAM DESCRIPTION: RAD - Chest Single View - 09/09/2023 7:51 pm CLINICAL HISTORY: CHEST PAIN COMPARISON: No comparisons FINDINGS: Lines: None. Lungs: No evidence of edema or pneumonia. Pleural: No significant pleural effusions or pneumothorax. Cardiac: Borderline cardiomegaly. Mediastinum: Within normal limits. Bones: No acute fractures. Sternotomy. Other: None IMPRESSION: No acute cardiopulmonary disease.
[2023-09-09] MEDS ORDERED: MORPHINE 4 MG/ML SYR ONE (20:57)
[2023-09-09] MEDS ORDERED: HEPARIN 5000 UNIT/ML 1 ML VIAL ONE (21:44)
[2023-09-09] MEDS ORDERED: HEPARIN/D5W 25,000 UNIT/500 ML BAG IV ONE (21:44)
--- NOTE | 2023-09-09 22:53 | EDPHYS ---
Physician Documentation [facility] Name: Marcie Mars Age: 77 yrs Sex: Female : 1945 Arrival Date: 09/09/2023 Time: 19:18 Bed 4 Private MD: ED Physician Xander Peng HPI: 09/09 21:36 This 77 yrs old Female presents to ER via Wheelchair with complaints of Chest Pain. rt 21:36 Patient presents to the ED with chest pain starting about 1 hour prior to arrival at rt rest. The radiate to the jaw. Reports nausea without vomiting. Denies other acute complaint at this time. Symptoms are severe in severity pressure-like in nature, no other aggravating or elevating factors.. ROS: 21:36 Constitutional: Negative for fever, chills, and weight loss, Respiratory: Negative for rt shortness of breath, cough, wheezing, and pleuritic chest pain, MS/Extremity: Negative for injury and deformity, Skin: Negative for injury, rash, and discoloration, Neuro: Negative for headache, weakness, numbness, tingling, and seizure, Psych: Negative for depression, anxiety, suicide ideation, homicidal ideation, and hallucinations, 21:36 Cardiovascular: Positive for chest pain, Negative for edema, 21:36 Abdomen/GI: Positive for nausea, Negative for abdominal pain, 21:36 : Exam: 21:36 Constitutional: This is a well developed, well nourished patient who is awake, alert, rt and in no acute distress. Head/Face: Normocephalic, atraumatic. Chest/axilla: Normal chest wall appearance and motion. Nontender with no deformity. No lesions are appreciated. Cardiovascular: Regular rate and rhythm with a normal S1 and S2. No gallops, murmurs, or rubs. Normal PMI, no JVD. No pulse deficits. Respiratory: Lungs have equal breath sounds bilaterally, clear to auscultation and percussion. No rales, rhonchi or wheezes noted. No increased work of breathing, no retractions or nasal flaring. Abdomen/GI: Soft, non-tender, with normal bowel sounds. No distension or tympany. No guarding or rebound. No evidence of tenderness throughout. Skin: Warm, dry with normal turgor. Normal color with no rashes, no lesions, and no evidence of cellulitis. MS/ Extremity: Pulses equal, no cyanosis. Neurovascular intact. Full, normal range of motion. Neuro: Awake and alert, GCS 15, oriented to person, place, time, and situation. Cranial nerves II-XII grossly intact. Motor strength 5/5 in all extremities. Sensory grossly intact. Cerebellar exam normal. Normal gait. Psych: Awake, alert, with orientation to person, place and time. Behavior, mood, and affect are within normal limits. 21:36 ECG was reviewed by the Attending Physician. Vital Signs: 19:25 BP 180 / 69; Pulse 67; Resp 20; Temp 97.9; Pulse Ox 98% on R/A; Weight 97.52 kg; Height hb 5 ft. 3 in. ; Pain 8/10; 19:42 BP 158 / 65; Pulse 58; Resp 17 S; Pulse Ox 98% on R/A; lg3 21:01 BP 145 / 75; Pulse 51; Resp 18 S; Pulse Ox 98% on R/A; lg3 21:19 Weight 103 kg (M); lg3 21:47 BP 138 / 68; Pulse 52; Resp 20 S; Pulse Ox 97% on R/A; lg3 22:55 BP 161 / 72; Pulse 52; Resp 17 S; Pulse Ox 97% on R/A; lg3 09/10 00:03 BP 159 / 73; Pulse 58; Resp 15 S; Pulse Ox 98% on R/A; lg3 09/09 19:25 Body Mass Index 38.09 (103.00 kg, 160.02 cm) hb 09/09 19:25 Pain Scale: Adult hb MDM: 09/09 19:26 Patient medically screened. rt 22:53 Differential diagnosis: Unstable angina, CAD, chest wall pain, pneumonia, pneumothorax. rt HEART Score: History: Highly Suspicious (2), ECG: Non specific repolarization disturbance / LBTB / PM (1), Age: > or = 65 years (2), Risk Factors: > or = 3 Risk factors for atherosclerotic disease (2), Troponin: < or = 1 x Normal Limit (0), Total Score = 7. The patient was given aspirin in the Emergency Department. Data reviewed: vital signs, nurses notes, lab test result(s), EKG, radiologic studies. Consideration of Admission/Observation Escalation of care including admission/observation considered. Management of patient was discussed with the following: Director Of Patient Care: Discussed with patient's building equipment operator to request transfer to [facility].. I considered the following discharge prescriptions or medication management in the emergency department Medications were administered in the Emergency Department. See MAR. Independent interpretation of the following test(s) in the Emergency Department X-Ray: My interpretation is No pneumonia seen mitral rotation of x-ray images. Test considered but Not performed: CT: Symptoms not consistent with aortic dissection, CT angiogram not indicated. Care significantly affected by the following chronic conditions: CAD, hypertension. Counseling: I had a detailed discussion with the patient and/or guardian regarding the historical points, exam findings, and any diagnostic results supporting the discharge/admit diagnosis, lab results, radiology results, the need to transfer to another facility. 09/09 19:27 Order name: Basic Metabolic Panel; Complete Time: 20:17 rt 09/09 19:27 Order name: CBC with Diff; Complete Time: 20:17 rt 09/09 19:27 Order name: LFT's; Complete Time: 20:17 rt 09/09 19:27 Order name: NT PRO-BNP; Complete Time: 20:17 rt 09/09 19:27 Order name: PT-INR; Complete Time: 20:17 rt 09/09 19:27 Order name: Troponin HS; Complete Time: 20:17 rt 09/09 21:18 Order name: Ptt, Activated; Complete Time: 21:59 rt 09/09 19:27 Order name: XRAY Chest (1 view); Complete Time: 20:21 rt 09/09 19:27 Order name: EKG; Complete Time: 19:28 rt 09/09 19:27 Order name: Cardiac monitoring; Complete Time: 19:46 rt 09/09 19:27 Order name: EKG - Nurse/Tech; Complete Time: 19:46 rt 09/09 19:27 Order name: IV Saline Lock; Complete Time: 19:46 rt 09/09 19:27 Order name: Labs collected and sent; Complete Time: 19:46 rt 09/09 19:27 Order name: O2 Per Protocol; Complete Time: 19:46 rt 09/09 19:27 Order name: O2 Sat Monitoring; Complete Time: 19:46 rt EC:36 Rate is 68 beats/min. Rhythm is regular, Normal Sinus Rhythm with No ectopy. QRS [place] rt is Normal. HI interval is normal. QRS interval is normal. QT interval is normal. No Q waves. Clinical impression: NSR w/ Non-specific ST/T Changes. Administered Medications: 19:45 Drug: Nitroglycerin Sublingual 0.4 mg Sublingual once; every five minute if needed x3 lg3 Route: Sublingual; 19:46 Drug: Aspirin PO Chewable Tablet 324 mg PO once; 81 mg tablets x 4 Route: PO; lg3 09/10 00:04 Follow up: Response: No adverse reaction lg3 09/09 19:55 Drug: Nitroglycerin Sublingual 0.4 mg Sublingual once; every five minute if needed x3 lg3 Route: Sublingual; 20:00 Drug: Nitroglycerin Sublingual 0.4 mg Sublingual once; every five minute if needed x3 lg3 Route: Sublingual; 20:39 Follow up: Response: No adverse reaction; No change in condition; Pain is unchanged, lg3 physician notified 20:49 Drug: morphine IVP or IV 4 mg IVP once over 4 mins Route: IVP; Infused Over: 4 mins; lg3 Site: left forearm; 23:48 Follow up: Response: No adverse reaction lg3 21:22 CANCELLED (Physician Discretion): Nitro Drip - (jomejyxifnfxl71 mg, l9e816 ml) 5 rt mcg/min IV at 5 mcg/min See Administration Instructions; Recommended max rate 400 mcg/min; Titrate 5 to 20 mcg/min as often as every 5 minutes to achieve goal; Goal parameter SBP less than 160 bpm; Use low-sorbing IV tubing. 21:45 Drug: Heparin (MD-Bolus No thrombolytic) - HEParin IVP 60 units/kg IVP once; Max 5000 lg3 units {Co-Signature: d[place] (Lainey Singleton RN).} Route: IVP; Site: right wrist; 23:48 Follow up: Response: No adverse reaction lg3 21:46 Drug: Heparin (MD Drip) 12 units/kg/hr - ([place] [address] units, D5W IV 500 ml) IV at lg3 calculated rate Per protocol; Max initial rate 1000 units/hr {Co-Signature: [email or web address] (Lainey Singleton RN).} Route: IV; Rate: calculated rate; Site: right wrist; 09/10 00:04 Follow up: IV Status: Infusion continued upon transfer lg3 Disposition: 09/09 22:53 Critical Care:. rt Disposition Summary: 09/09/23 22:52 Transfer Ordered Notes: Transfer Location: [facility] rt Reason: Private Physician at Transferring Hospital rt Condition: Fair rt Problem: new rt Symptoms: have improved rt Accepting Physician: (09/10/23 00:06) lg3 Diagnosis - Unstable angina rt Discharge Instructions: - Discharge Summary Sheet rv1 Forms: - Medication Reconciliation Form rt - SBAR form rv1 Critical care time excluding procedures: 22:53 Critical care time: Bedside Care: 30 minutes, Consultation: 10 minutes. Total time: 40 rt minutes Signatures: Dispatcher [employer] EDIvory Mills RN RN lg3 Xander Peng MD MD rt Lainey Singleton RN km8 Corrections: (The following items were deleted from the chart) 21:22 21:18 Nitro Drip 5 mcg/min - (Nitroglycerin IV 50 mg, D5W IV 250 ml) IV at 5 mcg/min rt See Administration Instructions; Recommended max rate 400 mcg/min; Titrate 5 to 20 mcg/min as often as every 5 minutes to achieve goal; Goal parameter SBP less than 160 bpm; Use low-sorbing IV tubing. ordered. rt 09/10 00:06 09/09 22:52 rt lg3
--- NOTE | 2023-09-09 22:53 | ER ---
Nurse's Notes [facility] Name: Marcie Mars Age: 77 yrs Sex: Female : 1945 Arrival Date: 09/09/2023 Time: 19:18 Bed 4 Private MD: Diagnosis: Unstable angina Presentation: 09/09 19:25 Chief complaint: Sudden onset midsternal chest pain and SOB x 1 hour. 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 Coronavirus screen: At this time, the client does not indicate any symptoms associated with coronavirus-19. Ebola Screen: No symptoms or risks identified at this time. Initial Sepsis Screen: Does the patient meet any 2 criteria? No. Patient's initial sepsis screen is negative. Does the patient have a suspected source of infection? No. Patient's initial sepsis screen is negative. Risk Assessment: Do you want to hurt yourself or someone else? Patient reports no desire to harm self or others. Onset of symptoms was September 09, 2023. 19:25 Method Of Arrival: Wheelchair hb 19:25 Acuity: RANDA 2 hb Screenin:42 [facility] ED Fall Risk Assessment (Adult) History of falling in the last 3 months, lg3 including since admission No falls in past 3 months (0 pts). Abuse screen: Denies threats or abuse. Denies injuries from another. Nutritional screening: No deficits noted. Tuberculosis screening: No symptoms or risk factors identified. Assessment: 19:42 General: Appears in no apparent distress. comfortable, Behavior is cooperative, lg3 anxious. Pain: Complains of pain in chest. Neuro: No deficits noted. [place] Agitation-Sedation Scale (RASS): 0 - Alert and Calm Level of Consciousness is awake, alert, obeys commands, Oriented to person, place, time, situation. Cardiovascular: No deficits noted. Reports chest pain, Capillary refill < 3 seconds Clubbing of nail beds is absent JVD is absent Patient's skin is warm and dry. Respiratory: No deficits noted. Airway is patent Respiratory effort is even, unlabored, Respiratory pattern is regular, symmetrical. GI: No deficits noted. No signs and/or symptoms were reported involving the gastrointestinal system. Abdomen is round non-distended, obese. : No deficits noted. No signs and/or symptoms were reported regarding the genitourinary system. EENT: No deficits noted. No signs and/or symptoms were reported regarding the EENT system. Derm: No deficits noted. No signs and/or symptoms reported regarding the dermatologic system. Skin is intact, is healthy with good turgor, Skin is dry, Skin is normal, Skin temperature is warm. Musculoskeletal: No deficits noted. No signs and/or symptoms reported regarding the musculoskeletal system. Circulation, motion, and sensation intact. Range of motion: intact in all extremities. 21:01 Reassessment: Patient appears in no apparent distress at this time. No changes from lg3 previously documented assessment. Patient and/or family updated on plan of care and expected duration. Pain level reassessed. Patient states symptoms have not improved. 22:55 Reassessment: Patient appears in no apparent distress at this time. No changes from lg3 previously documented assessment. Patient and/or family updated on plan of care and expected duration. Pain level reassessed. Patient states feeling better. 09/10 00:03 Reassessment: Patient appears in no apparent distress at this time. No changes from lg3 previously documented assessment. Patient and/or family updated on plan of care and expected duration. Pain level reassessed. Patient states feeling better. Vital Signs: 09/09 19:25 BP 180 / 69; Pulse 67; Resp 20; Temp 97.9; Pulse Ox 98% on R/A; Weight 97.52 kg; Height hb 5 ft. 3 in. ; Pain 8/10; 19:42 BP 158 / 65; Pulse 58; Resp 17 S; Pulse Ox 98% on R/A; lg3 21:01 BP 145 / 75; Pulse 51; Resp 18 S; Pulse Ox 98% on R/A; lg3 21:19 Weight 103 kg (M); lg3 21:47 BP 138 / 68; Pulse 52; Resp 20 S; Pulse Ox 97% on R/A; lg3 22:55 BP 161 / 72; Pulse 52; Resp 17 S; Pulse Ox 97% on R/A; lg3 09/10 00:03 BP 159 / 73; Pulse 58; Resp 15 S; Pulse Ox 98% on R/A; lg3 09/09 19:25 Body Mass Index 38.09 (103.00 kg, 160.02 cm) hb 09/09 19:25 Pain Scale: Adult hb ED Course: 09/09 19:22 Patient arrived in ED. hb 19:25 EKG done, by ED staff, reviewed by Xander Peng MD. jl7 19:26 Xander Peng MD is Attending Physician. rt 19:28 Triage completed. hb 19:29 Ivory Edouard, RN is Primary Nurse. lg3 19:42 Inserted saline lock: 22 gauge in left forearm, using aseptic technique. Blood lg3 collected. Patient maintains SpO2 saturation greater than 95% on room air. 19:42 Patient has correct armband on for positive identification. Placed in gown. Bed in low lg3 position. Call light in reach. Side rails up X 1. Client placed on continuous cardiac and pulse oximetry monitoring. NIBP monitoring applied. playground monitor on. Door closed. Noise minimized. Warm blanket given. Family accompanied patient. 19:42 Arm band placed on. lg3 19:46 Basic Metabolic Panel Sent. lg3 19:46 CBC with Diff Sent. lg3 19:46 LFT's Sent. lg3 19:46 NT PRO-BNP Sent. lg3 19:46 PT-INR Sent. lg3 19:46 Troponin HS Sent. lg3 19:52 XRAY Chest (1 view) In Process Unspecified. EDMS 21:26 Initiated transfer with Pam at [facility]. rv1 21:34 [facility] declined due to capacity. rv1 21:35 Inserted saline lock: 20 gauge in right wrist, using aseptic technique. km8 21:58 Pam with [facility] called back with ER doc for ER to ER transfer. rv1 22:[address] Soot to [facility] ER. rv1 09/10 00:05 No provider procedures requiring assistance completed. Patient transferred, IV remains lg3 in place. intact, No redness/swelling at site. Administered Medications: 09/09 19:45 Drug: Nitroglycerin Sublingual 0.4 mg Sublingual once; every five minute if needed x3 lg3 Route: Sublingual; 19:46 Drug: Aspirin PO Chewable Tablet 324 mg PO once; 81 mg tablets x 4 Route: PO; lg3 09/10 00:04 Follow up: Response: No adverse reaction lg3 09/09 19:55 Drug: Nitroglycerin Sublingual 0.4 mg Sublingual once; every five minute if needed x3 lg3 Route: Sublingual; 20:00 Drug: Nitroglycerin Sublingual 0.4 mg Sublingual once; every five minute if needed x3 lg3 Route: Sublingual; 20:39 Follow up: Response: No adverse reaction; No change in condition; Pain is unchanged, lg3 physician notified 20:49 Drug: morphine IVP or IV 4 mg IVP once over 4 mins Route: IVP; Infused Over: 4 mins; lg3 Site: left forearm; 23:48 Follow up: Response: No adverse reaction lg3 21:22 CANCELLED (Physician Discretion): Nitro Drip - ([id number] mg, [id number] ml) 5 rt mcg/min IV at 5 mcg/min See Administration Instructions; Recommended max rate 400 mcg/min; Titrate 5 to 20 mcg/min as often as every 5 minutes to achieve goal; Goal parameter SBP less than 160 bpm; Use low-sorbing IV tubing. 21:45 Drug: Heparin (ME-Bolus No thrombolytic) - HEParin IVP 60 units/kg IVP once; Max 5000 lg3 units {Co-Signature: d[place] (Lainey Singleton RN).} Route: IVP; Site: right wrist; 23:48 Follow up: Response: No adverse reaction lg3 21:46 Drug: Heparin (ME Drip) 12 units/kg/hr - ([place] [address] units, D5W IV 500 ml) IV at lg3 calculated rate Per protocol; Max initial rate 1000 units/hr {Co-Signature: [place] (Lainey Singleton RN).} Route: IV; Rate: calculated rate; Site: right wrist; 09/10 00:04 Follow up: IV Status: Infusion continued upon transfer lg3 Medication: 00:05 VIS not applicable for this client. lg3 Outcome: 09/09 22:52 ER care complete, transfer ordered by . rt 09/10 00:05 Transferred by ground EMS to [facility], lg3 Condition: stable Instructed on the need for transfer, Demonstrated understanding of instructions, 00:06 Patient left the ED. lg3 Signatures: Dispatcher [employer] EDMS Rashida Pérez, RN RN Salome Aranda RN RN jl7 Ivory Edouard RN RN lg3 Xander Peng MD MD rt Ninfa Briggs rv1 Lainey Singleton RN RN km8 Lainey Singleton RN km8 Corrections: (The following items were deleted from the chart) 09/09 22:37 22:35 Pam with [facility] called back with ER doc for ER to ER transfer rv1 rv1
[2023-09-10 00:30] VITALS: TEMP 97.9
[2023-09-10 00:37] VITALS: BP 159/73; O2SAT 98
--- NOTE | 2023-09-12 07:57 | EKG ---
Test Date: 2023-09-09 Test Time: 19:23:25 Conference Assistant: MIKE MEASUREMENT RESULTS: Intervals: Rate: 68 KS: 172 QRSD: 78 QT: 416 QTc: 442 [place]: P: 23 KS: 172 QRS: 8 T: 96 INTERPRETIVE STATEMENTS: Normal sinus rhythm Anterior infarct, age undetermined ST & T wave abnormality, consider lateral ischemia Abnormal ECG Compared to ECG 05/02/2006 06:19:00 Myocardial infarct finding now present ST (T wave) deviation now present Possible ischemia now present Sinus bradycardia no longer present Prolonged QT interval no longer present T-wave abnormality no longer present Electronically Signed On 09-12-23 07:52:26 CDT by Ambrocio Finn
== END 2023-09-10 00:06 | disposition short-term general hospital (02) ==
LOC: ER 19:18
DX: I20.0 Unstable angina (principal)
CPT/HCPCS: 93005; 85025; 80048; 36415; 85610; 80076; 85730; 84484; 83880; 71045; 99285; J1644